=== PATIENT | male | born 1990 | race Caucasian/White ===

== ENCOUNTER 2020-11-28 13:11 | Emergency (ER) | payer OTHER, SELFPAY ==
[2020-11-28 13:37] VITALS: BP 141/88; PULSE 100; RESP 16; TEMP 36.7; O2SAT 100
[2020-11-28] MEDS: LIDO 1%/EPINEPHRINE 1:100,000 50 ML VIAL (14:00)
--- NOTE | 2020-11-28 14:22 | ED.MALEGU ---
HPI - Male Genitourinary General Chief complaint: Urogenital-Male Stated complaint: RIGHT TESTICULAR SWELLING Time Seen by Provider: 11/28/20 13:20 Source: patient Mode of arrival: ambulatory Limitations: no limitations History of Present Illness HPI Narrative: 30 years old white male presents with skin lesion/abscess of the scrotum for the last 7 days. Patient denies any fever, chills, nausea, vomiting, similar symptoms. Related Data Allergies Allergy/AdvReac Type Severity Reaction Status Date / Time No Known Allergies Allergy Unverified 11/28/20 13:44 Review of Systems Review of Systems: Narrative: CONSTITUTIONAL: Denies fever, chills, or sweats. EYES: Denies visual changes, redness, or discharge. ENT: Denies rhinorrhea, congestion, sore throat, or otalgia. CARDIOVASCULAR: Denies chest pain, palpitations, or edema. RESPIRATORY: Denies cough or dyspnea. GASTROINTESTINAL: Denies abdominal pain, nausea, vomiting, or diarrhea. GENITOURINARY: Denies dysuria or hematuria. SKIN: Denies rash or itching. MUSCULOSKELETAL: Denies back pain, joint pain, or myalgia. NEUROLOGIC: Denies headache, numbness, or weakness. PSYCHIATRIC: Denies anxiety or depression. Exam Narrative: Exam Narrative: General appearance: Well-developed, well-nourished Skin: Normal color Chest and respiratory: Airway patent, no respiratory distress, no accessory muscle use Heart: Regular rate/rhythm Abdomen: Soft, nontender, no organomegaly, quiet bowel sounds, genital exam showed 1.5 x 1.5 cm abscess-like lesion at the scrotum anteriorly, tender, no erythema, no discharge Vascular: Normal peripheral pulses, normal capillary refill. Musculoskeletal: Normal range of motion, nontender back Neurologic: Alert and oriented ?3, Course Course Emergency Course: Stable Vital Signs Vital signs: Vital Signs Temperature 36.7 C 11/28/20 13:37 Pulse Rate 100 11/28/20 13:37 Respiratory Rate 16 11/28/20 13:37 Blood Pressure 141/88 H 11/28/20 13:37 Pulse Oximetry 100 11/28/20 13:37 Temperature 36.7 C 11/28/20 13:37 Pulse Rate 100 11/28/20 13:37 Respiratory Rate 16 11/28/20 13:37 Blood Pressure 141/88 H 11/28/20 13:37 Pulse Oximetry 100 11/28/20 13:37 Procedures Abscess I/D scrotum: Date of Incision: 11/28/20 Time of Incision: 14:39 Side (if applicable): right Local Anesthetic: lidocaine 1% and with epi Amount of anesthesia used (mL): 3 Technique: incised with #11 blade and probed loculations Amount of fluid expressed (mL): 2 Irrigation: No Packing used?: iodoform I&D Results: Pus and Blood Abcess I&D Additional Comments: Patient tolerated the procedure well, cultures ordered. MDM - Male Genitourinary MDM Narrative Medical decision making narrative: Abscess of scrotum. Incision and drainage is recommended at this time. Further plan to follow Critical Care Time Critical Care Time Critical Care Time: No Discharge Plan Discharge Clinical Impression: Abscess of scrotum Patient Disposition: Home, Self-Care Condition: Improved Instructions: Abscess Incision and Drainage (DC) Additional Instructions: Return if symptoms are worsening , call your family physician for appointment, take Tylenol as as needed for aches and pain, continue home medications., Remove the packing in 24 hours Prescriptions: New clindamycin HCl 300 mg capsule 300 mg PO Q6H Qty: 28 RF: 0 Follow-up/Referrals: PHYSICIAN,CASINO RUNNER [Primary Care Provider] - Ayad Fuller MD [Physician] -
== END 2020-11-28 15:05 | disposition home or self-care (01) ==
PROVIDERS: Emergency Provider Emergency Medicine
DX: N49.2 Inflammatory disorders of scrotum (principal)
CPT/HCPCS: 55100; 87070; 87075; 87147; 87186; 87205; 99283

== ENCOUNTER 2021-03-20 21:58 | Emergency (ER) | payer OTHER, SELFPAY ==
--- NOTE | ~2021-03-20 | XR_ITS ---
EXAMINATION: XR chest 2V 03/21/2021 06:31 INDICATION: Leukocytosis PROCEDURE: 2 view chest COMPARISON: No prior studies for comparison. FINDINGS: The lungs are clear. The cardiomediastinal silhouette is within normal limits. There are no pleural effusions. There is no pneumothorax suspected. IMPRESSION: 1: NO ACUTE CARDIOPULMONARY DISEASE. Reviewed, dictated and finalized at location A.
[2021-03-20 22:41] VITALS: BP 102/65; PULSE 97; RESP 18; TEMP 36.4; O2SAT 99
--- NOTE | 2021-03-21 00:18 | PC.NURSE ---
pt states he was recently at [facility] in [place], [place] for same issue and signed out AMA 2 weeks ago. He states they diagnosed him w/ MRSA infection. he states 2 days ago he developed another wound on his chin.
[2021-03-21 00:21] VITALS: BP 128/82; PULSE 95; RESP 18; O2SAT 100
[2021-03-21 00:26] VITALS: BP 128/82
--- NOTE | 2021-03-21 01:36 | PC.NURSE ---
pt ambulated to restroom to give urine sample at this time.
--- NOTE | 2021-03-21 01:37 | PC.NURSE ---
this rn called down to lab to add on CMP CBC.
[2021-03-21 01:43] LABS: Basophils Absolute Auto 0.1 K/mm3 (0.0-0.1); Basophils Percent Auto 0.4 % (0.2-1.2); Eosinophils Absolute Auto 0.2 K/mm3 (0-0.3); Eosinophils Percent Auto 1.5 % (0-4.4); Hemoglobin 14.5 g/dL (14.0-18.0); Immature Granulocyte Absolute 0.08 K/mm3 (0.00-0.031); Immature Granulocyte Percent A 0.5 % (0-0.5); Lymphocytes Absolute Auto 2.94 K/mm3 (0.9-3.2); Lymphocytes Percent Auto 17.9 % (18.3-44.2); Mean Corpuscular Hemoglobin 29.4 pg (26-34); Mean Corpuscular Volume 89.2 fl (80-100); Mean Platelet Volume 11.3 fl (7.4-10.4); Monocytes Absolute Auto 1.3 K/mm3 (0.1-0.6); Monocytes Percent Auto 7.7 % (2.6-8.5); Neutrophils Absolute Auto 11.8 K/mm3 (1.3-6.7); Platelet Count Result 318 k/mm3 (150-375); Red Blood Count 4.93 M/mm3 (4.6-6.20); Red Cell Distribution Width 12.1 % (11.5-14.5); White Blood Count 16.4 K/mm3 (4.5-10.0)
[2021-03-21 01:46] LABS: Alanine Aminotransferase 29 U/L (4-50); Albumin Level 4.8 g/dL (3.5-5.1); Alkaline Phosphatase 78 U/L (38-126); Anion Gap 15 mmol/L (8-16); Aspartate Amino Transferase 39 U/L (17-59); Bilirubin,Total 1.3 mg/dL (0.2-1.3); Blood Urea Nitrogen 20 mg/dL (9-20); Carbon Dioxide 25 mmol/L (22-30); Chloride 94 mmol/L (98-107); Estimated CRCL calculation 88 ml/min; Estimated Glomerular Filt Rate > 60; Glucose 67 mg/dL (75-110); Potassium 3.6 mmol/L (3.4-5.0); Sodium 134 mmol/L (137-145)
[2021-03-21 01:52] LABS: Add Urine Microscopic? YES; Appearance Urine Cloudy (Clear); Bacteria Urine Trace /hpf; Bilirubin Urine Negative (Negative); Blood Urine Negative (Negative); Color Urine Amber (Yellow); Glucose Urine UA Negative (Negative); Ketones Urine 1+ mg/dL (Negative); Leukocyte Esterase Ur Negative LEU/UL (Negative); Mucus Urine Moderate /lpf; Nitrate Urine Negative (Negative); Protein Urine 1+ mg/dL (Negative); RBC Urine 0-2 /hpf (0-2); Specific Grav Ur 1.028 (1.001-1.035); Squamous Epithelial Cell Urine Rare /hpf (Few)
--- NOTE | 2021-03-21 02:10 | ED.SKABFB ---
HPI - Skin/Abscess/Foreign Bdy General Chief complaint: Skin/Abscess/Foreign Body Stated complaint: blood disease need IV antibiotics Time Seen by Provider: 03/21/21 01:46 Source: patient and RN notes reviewed Mode of arrival: ambulatory Limitations: no limitations History of Present Illness HPI narrative: This is a homeless 30 year old male who present for evaluation of an infection. He states 2 weeks ago he was admitted to [facility] to treat MRSA infection. He states he was taking clindamycin but he states he was admitted for IV Antibiotics because of lack of improvement. He is unsure if he was bacteremic. Patient states he left AMA 2 weeks ago. He came to ER today because he is tired of having sores on his face and back. He denies fever, chills, nausea, vomiting. He does admit to methamphetamine use but denies IV Drug use. Related Data Allergies Allergy/AdvReac Type Severity Reaction Status Date / Time No Known Allergies Allergy Unverified 03/21/21 00:26 Review of Systems Review of Systems: All systems reviewed & are unremarkable except as noted in HPI and below Constitutional: Constitutional: Denies chills and Denies fever(s) Cardiovascular: Cardiovascular: Denies chest pain Respiratory: Respiratory: Denies cough and Denies dyspnea Gastrointestinal: Gastrointestinal: Denies abdominal pain, Denies diarrhea, Denies nausea and Denies vomiting Integumentary/Breasts: Skin/Breast: Reports erythema and Reports skin ulcer PMFSH Past Medical History Medical History (Updated 03/21/21 @ 06:40 by Princess Resendez MD) MRSA infection Surgical History Surgical History (Updated 03/21/21 @ 06:37 by Princess Resendez MD) No pertinent past surgical history Social History Social History (Updated 03/21/21 @ 06:37 by Princess Resendez MD) Smoking status: Current every day smoker Substance use type: methamphetamine Gender identity (if verbalized by the patient): Male Exam Const: General: no acute distress and alert Orientation/consciousness: patient oriented x3 HENMT: Mouth: Yes lip normal Throat: uvula midline Other: right chin with gold crusting lesion, no drainage Eyes: Pupils: Equal, round and reactive pupils present EOM: EOMs intact bilaterally Chest: Chest palpation & inspection: normal inspection of the chest Resp: Effort & Inspection: normal respiratory effort and no retractions Auscultation: clear to auscultation bilaterally Cardio: Rate: regular rate Rhythm: regular rhythm GI: Auscultation: normal bowel sounds Other: soft, nontender, nondistended Skin: Wounds: wounds noted Other: 3 healing ulceration to his back, no surrounding erythema or drainage, right chin lesion macular with lewis crusting, no surrounding erythema or drainage Neuro: General: patient oriented x3 and moves all extremities Course Reevaluation(s) Reevaluation #1: PAtient was given dose of clindamyin IV. Patient does appear to have some skin lesions that may be mrsa or impetigo. His vitals are stable so will discharge with antibiotics. It is unclear if he is bacteremic but he does not look acutely ill. Date: 03/21/21 Time: 06:39 Vital Signs Vital signs: Vital Signs Temperature 97.5 F L 03/20/21 22:41 Pulse Rate 97 03/20/21 22:41 Respiratory Rate 18 03/20/21 22:41 Blood Pressure 102/65 03/20/21 22:41 Pulse Oximetry 99 03/20/21 22:41 Temperature 97.5 F L 03/20/21 22:41 Pulse Rate 69 03/21/21 05:56 Respiratory Rate 18 03/21/21 05:56 Blood Pressure 125/83 03/21/21 05:56 Pulse Oximetry 100 03/21/21 05:56 MDM - Skin/Abscess/Foreign Bdy Medical Records Attestation: I reviewed the patient's medical records. Lab Data Attestation: I reviewed the patient's lab results. Result diagrams: 03/21/21 00:23 03/21/21 00:23 Labs: Lab Results 03/21/21 03/21/21 03/21/21 Range/Units 00:23 00:23 01:39 WBC 16.4 H (4.5
[2021-03-21 03:27] VITALS: BP 129/84; PULSE 96; RESP 18; O2SAT 99
[2021-03-21] MEDS: CLINDAMYCIN 900 MG/D5W 50 ML 900 MG/50 ML PIGGYBACK 50 MG IVPB (03:41)
[2021-03-21 05:56] VITALS: BP 125/83; PULSE 69; RESP 18; O2SAT 100
[2021-03-21 07:19] VITALS: BP 119/75; PULSE 83; RESP 18; O2SAT 100
== END 2021-03-21 07:26 | disposition home or self-care (01) ==
PROVIDERS: Emergency Provider General Practice
DX: L03.211 Cellulitis of face (principal); L01.00 Impetigo, unspecified; Z59.0 Homelessness; Z86.14 Personal history of Methicillin resistant Staphylococcus aureus infection
CPT/HCPCS: 36415; 71046; 80053; 81001; 85025; 87040; 96365; 99284

== ENCOUNTER 2024-04-01 20:22 | Emergency (ER) | payer OTHER, SELFPAY ==
--- NOTE | 2024-04-01 20:37 | ECG_ITS ---
SEE SCANNED COPY FOR CONFIRMED REPORT. MTDD
[2024-04-01 20:38] VITALS: BP 122/79; PULSE 101; RESP 18; TEMP 36.8; O2SAT 100
[2024-04-01 20:49] LABS: Basophils Percent Auto 0.2 % (0.2-1.2); Eosinophils Absolute Auto 0.1 K/mm3 (0-0.3); Eosinophils Percent Auto 1.2 % (0-4.4); Hematocrit 36.5 % (42.0-52.0); Hemoglobin 12.6 g/dL (14.0-18.0); Immature Granulocyte Absolute 0.04 K/mm3 (0.00-0.031); Immature Granulocyte Percent A 0.3 % (0-0.5); Lymphocytes Absolute Auto 2.37 K/mm3 (0.9-3.2); Lymphocytes Percent Auto 19.7 % (18.3-44.2); Mean Corpuscular HGB Conc 34.5 g/dl (32-36); Mean Corpuscular Hemoglobin 29.8 pg (26-34); Mean Corpuscular Volume 86.3 fl (80-100); Mean Platelet Volume 10.2 fl (7.4-10.4); Monocytes Absolute Auto 1.1 K/mm3 (0.1-0.6); Monocytes Percent Auto 9.4 % (2.6-8.5); Neutrophils Absolute Auto 8.4 K/mm3 (1.3-6.7); Neutrophils Percent Auto 69.2 % (45.5-73.1); Platelet Count Result 266 k/mm3 (150-375); Red Blood Count 4.23 M/mm3 (4.6-6.20); Red Cell Distribution Width 12.4 % (11.5-14.5); White Blood Count 12.1 K/mm3 (4.5-10.0)
[2024-04-01 20:55] LABS: Appearance Urine Clear (Clear); Bacteria Urine None Seen /hpf; Bilirubin Urine Negative (Negative); Blood Urine Negative (Negative); Color Urine Dark Yellow (Yellow); Glucose Urine UA Negative (Negative); Ketones Urine 1+ mg/dL (Negative); Leukocyte Esterase Ur Negative LEU/UL (Negative); Nitrate Urine Negative (Negative); Non Pathogenic Casts 0-2; Protein Urine Trace mg/dL (Negative); RBC Urine 0-2 /hpf (0-2); Specific Grav Ur 1.029 (1.001-1.035); Squamous Epithelial Cell Urine None Seen /hpf (Few); WBC Urine 0-5 /hpf (0-3); pH Urine 5.5 (5.0-9.0)
[2024-04-01 21:02] LABS: Alanine Aminotransferase 31 U/L (6-50); Albumin Level 4.2 g/dL (3.5-5.1); Alkaline Phosphatase 76 U/L (38-126); Anion Gap 9 mmol/L (4-12); Aspartate Amino Transferase 30 U/L (17-59); Bilirubin,Total 0.7 mg/dL (0.2-1.3); Blood Urea Nitrogen 13 mg/dL (9-20); Carbon Dioxide 23 mmol/L (22-30); Chloride 100 mmol/L (98-107); Estimated CRCL calculation 115 ml/min; Estimated Glomerular Filt Rate > 60; Ethanol < 10 mg/dL (<10); Glucose 87 mg/dL (65-110); Potassium 3.8 mmol/L (3.4-5.0); Sodium 132 mmol/L (137-145)
[2024-04-01 21:09] LABS: Barbiturate Screen Urine Negative (Negative); Benzodiazepines Screen Urine Negative (Negative)
[2024-04-01 21:12] LABS: Amphetamine Screen Urine Positive (Negative); Cannabinoid Screen Urine Positive (Negative); Cocaine Screen Urine Negative (Negative); Methadone Screen Urine Negative (Negative); Opiate Screen Urine Negative (Negative); Phencyclidine Screen Urine Negative (Negative)
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
[2024-04-01 21:22] LABS: Add Urine Microscopic? YES
[2024-04-01 21:55] LABS: Influenza A QL RT-PCR Negative (Negative); Influenza B QL RT-PCR Negative (Negative); SARS-CoV-2 RNA PCR Negative (Negative)
[2024-04-01 22:13] LABS: Thyroid Stimulating Hormone Reflex 0.812 uIU/mL (0.465-4.68)
[2024-04-02] MEDS: OLANZapine 5 MG, WATER, STERILE FOR INJECTION 2.1 ML IM (00:17)
--- NOTE | 2024-04-02 00:22 | PC.NURSE ---
Upon crisis arrival, pt began to get irritate. pt refused to answer questions for crisis. this rn asked for patient to sit up and to answer questions so that crisis could evaluate him. Pt started to yell and states, I won't talk to them, only to a psychiatrist, leave me alone . this rn educated patient that in order to be evaluated he needed to calm down and let Crisis evaluate him. pt laid back down. Pt then jumped up and started to scream at this RN to leave him alone. this rn left the room. pt calmed down. pt then attempted to close the door. this rn called ed security. pt then started screaming and yelling I will summon the gods on you, this is not right I told you I needed help . this rn attempted to reorient patient to surroundings. edp dr. maria stated verbal order for zyprexa to calm patient down. this rn administered zyprexa IM in the left deltoid to patient. Patient stated, I will calm down as soon as you get me a sandwich. I am hungry and thirsty . This rn stated once patient was calm and cooperative, food and drink would be given. pt laid back down. this rn gave patient a sandwich , chips, and water. Pt then laid down and began to eat calmly.
[2024-04-02 07:47] VITALS: BP 100/63; PULSE 72; RESP 18; TEMP 36.6; O2SAT 99
--- NOTE | 2024-04-02 08:14 | PC.NURSE ---
per charge weigher, crisis will evaluate pt once pt is alert and awake. obtained vitals on pt. pt still sleeping. will call crisis again once pt is awake and able to answer questions.
--- NOTE | 2024-04-02 12:34 | PC.NURSE ---
pt has been accepted at [facility]. accepting physician is Dr. Cain.
--- NOTE | 2024-04-02 13:33 | PC.NURSE ---
unable to find ems transport for [facility]. pt has been accepted to [facility]. report called to Gladys GONZALES. Accepting physician is Dr. Aly. EMS here at this time for transport to [facility]. Called [facility] and Spoke with Leonarda to let her know pt will no longer be coming to [facility].
== END 2024-04-02 13:40 ==
PROVIDERS: Emergency Medicine; Emergency Provider Emergency Medicine
DX: R45.851 Suicidal ideations (principal); R45.850 Homicidal ideations; Z20.822 Contact with and (suspected) exposure to COVID-19; F17.210 Nicotine dependence, cigarettes, uncomplicated
CPT/HCPCS: 36415; 80053; 80307; 81001; 84443; 85025; 87636; 93005; 96372; 99285; J2359

== ENCOUNTER 2024-07-08 17:26 | Inpatient (IN) | payer OTHER, SELFPAY ==
[2024-07-08 17:30] VITALS: BP 132/84; PULSE 109; RESP 16; TEMP 36.8; O2SAT 98
[2024-07-08 18:11] LABS: Basophils Absolute Auto 0.1 K/mm3 (0.0-0.1); Basophils Percent Auto 0.4 % (0.2-1.2); Eosinophils Absolute Auto 0.2 K/mm3 (0-0.3); Eosinophils Percent Auto 0.7 % (0-4.4); Hematocrit 44.4 % (42.0-52.0); Hemoglobin 16.2 g/dL (14.0-18.0); Immature Granulocyte Percent A 0.5 % (0-0.5); Lymphocytes Absolute Auto 2.85 K/mm3 (0.9-3.2); Lymphocytes Percent Auto 13.8 % (18.3-44.2); Mean Corpuscular HGB Conc 36.5 g/dl (32-36); Mean Corpuscular Hemoglobin 30.9 pg (26-34); Mean Corpuscular Volume 84.6 fl (80-100); Mean Platelet Volume 10.6 fl (7.4-10.4); Monocytes Absolute Auto 2.4 K/mm3 (0.1-0.6); Monocytes Percent Auto 11.6 % (2.6-8.5); Platelet Count Result 271 k/mm3 (150-375); Red Blood Count 5.25 M/mm3 (4.6-6.20); Red Cell Distribution Width 12.1 % (11.5-14.5); White Blood Count 20.6 K/mm3 (4.5-10.0)
[2024-07-08 18:23] LABS: Acetaminophen < 10 ug/mL (10-30); Alanine Aminotransferase 66 U/L (6-50); Alkaline Phosphatase 85 U/L (38-126); Anion Gap 13 mmol/L (4-12); Aspartate Amino Transferase 213 U/L (17-59); Bilirubin,Total 1.7 mg/dL (0.2-1.3); Blood Urea Nitrogen 22 mg/dL (9-20); Calcium 9.3 mg/dL (8.4-10.2); Carbon Dioxide 30 mmol/L (22-30); Chloride 86 mmol/L (98-107); Estimated CRCL calculation 66 ml/min; Estimated Glomerular Filt Rate 59; Ethanol < 10 mg/dL (<10); Glucose 116 mg/dL (65-110); Potassium 3.5 mmol/L (3.4-5.0); Salicylate < 1.0 mg/dL (2-20); Sodium 129 mmol/L (137-145)
[2024-07-08 18:32] LABS: Amphetamine Screen Urine Negative (Negative); Barbiturate Screen Urine Negative (Negative); Benzodiazepines Screen Urine Negative (Negative); Cannabinoid Screen Urine Positive (Negative); Cocaine Screen Urine Negative (Negative); Methadone Screen Urine Negative (Negative); Opiate Screen Urine Negative (Negative); Phencyclidine Screen Urine Negative (Negative)
[2024-07-08 18:34] LABS: Add Urine Microscopic? YES; Appearance Urine Clear (Clear); Bacteria Urine None Seen /hpf; Bilirubin Urine Negative (Negative); Blood Urine 2+ (Negative); Color Urine Yellow (Yellow); Glucose Urine UA Negative (Negative); Ketones Urine Negative (Negative); Leukocyte Esterase Ur Negative LEU/UL (Negative); Need Manual Microscopic Reviewed; Nitrate Urine Negative (Negative); Protein Urine 1+ mg/dL (Negative); RBC Urine 0-2 /hpf (0-2); Squamous Epithelial Cell Urine None Seen /hpf (Few); WBC Urine 0-5 /hpf (0-3)
[2024-07-08 18:47] LABS: Influenza A QL RT-PCR Negative (Negative); Influenza B QL RT-PCR Negative (Negative); RSV RNA, RT-PCR Negative (Negative); SARS-CoV-2 RNA PCR Negative (Negative)
[2024-07-08 19:01] LABS: Thyroid Stimulating Hormone Reflex 0.447 uIU/mL (0.465-4.68)
--- NOTE | 2024-07-08 19:49 | ED.PSYCH ---
HPI - Psych General Chief Complaint: Psychiatric Symptoms <BELIA Zamora Last Filed: 07/09/24 02:07> Stated Complaint: psych <BELIA Zamora Last Filed: 07/09/24 02:07> Time Seen by Provider: 07/08/24 18:49 <BELIA Zamora Last Filed: 07/09/24 02:07> Source: patient <BELIA Zamora Last Filed: 07/09/24 02:07> Mode of arrival: ambulatory <BELIA Zamora Last Filed: 07/09/24 02:07> Limitations: other (acute psychosis) <BELIA Zamora Last Filed: 07/09/24 02:07> History of Present Illness HPI Narrative: This is a 33-year-old male that presents to the emergency department for psychiatric evaluation. Reports he has been having thoughts of harming himself. Reports history of multiple attempts in the past. He is also previous psychiatric hospitalizations. Patient with history of schizophrenia and bipolar disorder. Also admits to using drugs. He has no plan on how he would harm himself. Patient is homeless. <BELIA Zamora Last Filed: 07/09/24 02:07> Related Data Home Medications: Home Medications Medication Instructions Recorded Confirmed No Home Medications 07/09/24 07/09/24 <BELIA Zamora Last Filed: 07/09/24 02:07> Allergies/Adverse Reactions: Allergies Allergy/AdvReac Type Severity Reaction Status Date / Time No Known Allergies Allergy Unverified 07/08/24 17:26 <BELIA Zamora Last Filed: 07/09/24 02:07> Review of Systems Review of Systems: CONSTITUTIONAL: Denies fever GASTROINTESTINAL: Denies abdominal pain, nausea, vomiting PSYCHIATRIC: Reports depression. <BELIA Zamora Last Filed: 07/09/24 02:07> All systems reviewed & are unremarkable except as noted in HPI and below <BELIA Zamora Last Filed: 07/09/24 02:07> [facility] Past Medical History Medical History: Medical History (Updated 07/08/24 @ 21:32 by Ruth Vega PA-C) History of bipolar disorder MRSA infection <Ruth Vega PA-C - Last Filed: 07/09/24 02:07> Surgical History Surgical History: Surgical History No pertinent past surgical history <Ruth Vega PA-C - Last Filed: 07/09/24 02:07> Social History Social History: Social History Smoking packs per day: 0.5 Smoking cigarettes per day: 10.0 Years smoked: 15 Smoking pack-years: 7.50 Smoking status: Current every day smoker Tobacco type: cigarettes Substance use type: marijuana, crack/cocaine, heroin, amphetamines, sedatives, opiates, painkillers, IV drugs and methamphetamine Last use: about a week ago Do You Feel Safe in your Home?: Yes Lack of Transportation: YES Lack of Food: Sometimes True Current Housing: I Do Not Have Housing Concerned About Future Housing: YES Difficulty Paying Gas/Electric Bills: Decline to Answer Difficulty Paying for Meds: Decline to Answer Currently Unemployed: YES Education: Decline to Answer Difficulty w/ Childcare or Family Care: Decline to Answer Gender identity (if verbalized by the patient): Male Spiritual care concerns: No <Ruth Vega PA-C - Last Filed: 07/09/24 02:07> Exam Narrative: GENERAL: Disheveled, well-nourished, and in no acute distress. HEAD: Normocephalic, atraumatic. EYES: EOMI. ENT: Nares clear, no rhinorrhea or epistaxis. Mucous membranes dry NECK: Supple. No adenopathy or masses. CHEST: Clear to auscultation. No respiratory distress. No wheezes rales or rhonchi HEART: Regular rate and rhythm. No murmur heard. Normal peripheral pulses. ABDOMEN: Soft, nontender, nondistended, normal active bowel sounds. EXTREMITIES: Normal range of motion. No edema. SKIN: Warm, dry, no rash. NEURO: No focal deficits. Alert and oriented x3. PSYCH: Normal mood and affect <Ruth Vega PA-C -
[2024-07-08] MEDS: SODIUM CHLORIDE 0.9% IV 1,000 ML 999 ML IV CONT ×2 (20:08→22:55)
[2024-07-08 20:53] LABS: Creatine Kinase 11903 U/L (55-170)
--- NOTE | 2024-07-08 21:08 | PM.IMHP ---
H&P: HPI History of Present Illness Date/Time: 07/08/24 21:08 Chief Complaint: SUICIDAL IDEATION Narrative: THIS IS A 33-YEAR-OLD MALE WITH PAST MEDICAL HISTORY SIGNIFICANT FOR BIPOLAR DISORDER, MAJOR DEPRESSION. PATIENT IS HOMELESS. PRESENTS TO THE EMERGENCY ROOM STATING THAT HAS SUICIDAL IDEATION. PRELIMINARY WORKUP WAS SIGNIFICANT FOR A CK OF 11,000. PATIENT HAS BEEN STARTED ON IV FLUIDS. Review of Systems Review of Systems: SUICIDAL ADA PMFSH Past Medical History Medical History (Updated 07/08/24 @ 21:32 by Ruth Vega PA-C) History of bipolar disorder MRSA infection Surgical History Surgical History No pertinent past surgical history Social History Social History Smoking status: Current every day smoker Substance use type: amphetamines Gender identity (if verbalized by the patient): Male Meds Home Medications and Allergies Allergies Allergy/AdvReac Type Severity Reaction Status Date / Time No Known Allergies Allergy Unverified 07/08/24 17:26 Vital Signs Vital Signs - 24 hr 07/08/24 17:30 Temperature 98.2 F Pulse Rate 109 H Respiratory Rate 16 Blood Pressure 132/84 Pulse Oximetry 98 Exam Narrative: LAYING IN A STRETCHER Const: General: comfortable, no acute distress, well developed, alert, awake and average body habitus Nutritional Appearance: average body habitus Orientation/consciousness: patient oriented x3 HENMT: Head: normal to inspection, normocephalic and atraumatic Ears: hearing grossly normal bilaterally Face/Nose/Sinus: normal facial exam Face and sinus: normal facial exam Eyes: General: appearance normal, both eyes and all related structures Pupils: Equal, round and reactive pupils present EOM: EOMs intact bilaterally Neck: Neck: full ROM, no lymphadenopathy and no JVD Thyroid: thyroid normal Lymphatic: no lymphadenopathy noted Resp: Effort & Inspection: normal respiratory effort and able to speak in complete sentences Auscultation: clear to auscultation bilaterally Cardio: Jugular venous distension: no JVD Rate: regular rate Rhythm: regular rhythm Heart sounds: S1 normal heart sound present and S2 normal heart sound present GI: GI Palp: Yes Soft to palpation and Yes No hepatosplenomegaly present : General: Yes deferred Skin: Rashes: no rashes Wounds: no wounds Neuro: General: patient oriented x3 and CN's II-XI intact bilaterally Cranial nerves: Yes CN's II-XII intact bilaterally and Yes Equal, round and reactive pupils present Cognition (Neuro): normal cognition Speech: normal speech Gait exam (Neuro): Normal gait present Motor exam (neuro): 5/5 motor strength present throughout Extrem: General: normal to inspection, full ROM, no joint enlargement and no pedal edema H&P: Results Labs Labs: Short CBC 07/08/24 Range/Units 18:03 WBC 20.6 H (4.5-10.0) K/mm3 Hgb 16.2 D (14.0-18.0) g/dL Hct 44.4 (42.0-52.0) % Plt Count 271 (150-375) k/mm3 BMP 07/08/24 18:03 Sodium 129 L Potassium 3.5 Chloride 86 L Carbon Dioxide 30 BUN 22 H Creatinine 1.40 H Glucose 116 H Calcium 9.3 Cardiac Enzymes 07/08/24 Range/Units 18:02 Total Creatine Kinase 07515 H (55-170) U/L Liver Function 07/08/24 Range/Units 18:03 Total Bilirubin 1.7 H (0.2-1.3) mg/dL AST 213 H (17-59) U/L ALT 66 H (6-50) U/L Alkaline Phosphatase 85 (38-126) U/L Albumin 5.0 (3.5-5.1) g/dL Urine 07/08/24 Range/Units 18:03 Urine Color Yellow (Yellow) Urine Appearance Clear (Clear) Urine pH 6.0 (5.0-9.0) Ur Specific [place] 1.020 (1.001-1.035) Urine Protein 1+ H (Negative) mg/dL Urine Glucose (UA) Negative (Negative) mg/dL Assessment and Plan Assessment and plan (1) Rhabdomyolysis: Qualifiers: Rhabdomyolysis type: non-traumatic
[2024-07-08 22:05] VITALS: BP 127/76; PULSE 94; RESP 18; O2SAT 99
--- NOTE | 2024-07-08 22:10 | PC.NURSE ---
provider would like a sitter bedside to initiate SI precautions for patient safety. prior to Grulla scale reassessment patient was resting in bed with equal chest rise and fall. patient was cooperative when assessing them again
[2024-07-08] MEDS: SODIUM CHLORIDE 0.9% IV 1,000 ML 125 ML IV CONT (22:55)
--- NOTE | 2024-07-08 23:46 | PC.NURSE ---
care and report given to CHRISTIAN Obando. all questions answered.
[2024-07-08] MEDS: LORazepam INJ (*CRX) 2 MG/ML VIAL 0.5 MG IV PUSH (23:55)
[2024-07-09] VITALS (10 sets, daily range): BP systolic 110–140; BP diastolic 69–91; PULSE 76–97; RESP 14–20; TEMP 36.1–36.6; O2SAT 99–100; BMI 24.1
[2024-07-09] MEDS: ACETAMINOPHEN 325 MG TABLET 650 MG PO (06:07)
--- NOTE | 2024-07-09 06:20 | ADMGEN ---
This patient, Lars Jack, was admitted to Intensive Care Unit-4. IMU overflow. Patient/family oriented to hospital policies and general routines including ID bracelet, bed and alarms, visiting hours, pain management, procedures, bathroom and other care routines, personal items, smoking policy, room service/diet, and visiting hours. Information on how to activate the Rapid Response Team has been discussed. Patient/Family are encouraged to report perceived risks to care and to ask questions if they do not understand what they are told or what they should do.
[2024-07-09] MEDS: SODIUM CHLORIDE 0.9% IV 1,000 ML 125 ML IV CONT ×3 (06:40→23:29)
--- NOTE | 2024-07-09 06:46 | PC.NURSE ---
Patient states he likes to eat Creatine; patient states that he takes all of them when asked about recreational drug use; Patient denies taking any home medications.
[2024-07-09 13:13] LABS: Hematocrit 37.7 % (42.0-52.0); Hemoglobin 13.2 g/dL (14.0-18.0); Mean Corpuscular Hemoglobin 31.1 pg (26-34); Mean Corpuscular Volume 88.7 fl (80-100); Mean Platelet Volume 10.4 fl (7.4-10.4); Platelet Count Result 228 k/mm3 (150-375); Red Blood Count 4.25 M/mm3 (4.6-6.20); Red Cell Distribution Width 12.2 % (11.5-14.5); White Blood Count 11.3 K/mm3 (4.5-10.0)
[2024-07-09 13:53] LABS: Alanine Aminotransferase 52 U/L (6-50); Albumin Level 3.3 g/dL (3.5-5.1); Alkaline Phosphatase 62 U/L (38-126); Anion Gap 5 mmol/L (4-12); Aspartate Amino Transferase 159 U/L (17-59); Bilirubin,Total 0.7 mg/dL (0.2-1.3); Blood Urea Nitrogen 10 mg/dL (9-20); Calcium 8.1 mg/dL (8.4-10.2); Carbon Dioxide 32 mmol/L (22-30); Chloride 97 mmol/L (98-107); Estimated CRCL calculation 88 ml/min; Estimated Glomerular Filt Rate > 60; Glucose 95 mg/dL (65-110); Magnesium 2.1 mg/dL (1.6-2.3); Sodium 134 mmol/L (137-145)
[2024-07-09 14:03] LABS: Creatine Kinase 9333 U/L (55-170)
[2024-07-09] MEDS: CYCLOBENZAPRINE HCL 5 MG TABLET PO (15:56)
--- NOTE | 2024-07-09 17:57 | WPDPN ---
Progress Note: A&P Assessment and Plan (1) Rhabdomyolysis: Qualifiers: Rhabdomyolysis type: non-traumatic Qualified Code(s): M62.82 - Rhabdomyolysis Code(s): M62.82 - Rhabdomyolysis Status: Acute (2) Suicide ideation: Code(s): R45.851 - Suicidal ideations Status: Acute Plan patient UDS was positive for cannabinoids, patient is found to have rhabdomyolysis upon arrival patient CK level was 11,903 is trending down to 9333, upon arrival patient BUN was 22 creatinine 1 point it has trended down BUN is 5 and creatinine is 1, will continue to hydrate the patient and monitor CK level as well as kidney 5 patient clinical symptoms improved will continue to monitor CK levels are below 500 will stop IV fluid, will switch over to p.o. and have a crisis team evaluation possible transfer to inpatient psychiatric [facility]. Subjective Date/time seen: 07/09/24 17:57 Interval history: ER-HPI Narrative: This is a 33-year-old male that presents to the emergency department for psychiatric evaluation. Reports he has been having thoughts of harming himself. Reports history of multiple attempts in the past. He is also previous psychiatric hospitalizations. Patient with history of schizophrenia and bipolar disorder. Also admits to using drugs. He has no plan on how he would harm himself. Patient is homeless. patient UDS was positive for cannabinoids, patient is found to have rhabdomyolysis upon arrival patient CK level was 11,903 is trending down to 9333, upon arrival patient BUN was 22 creatinine 1 point it has trended down BUN is 5 and creatinine is 1, will continue to hydrate the patient and monitor CK level as well as kidney 5 patient clinical symptoms improved will continue to monitor CK levels are below 500 will stop IV fluid, will switch over to p.o. and have a crisis team evaluation possible transfer to inpatient psychiatric [facility]. Review of Systems Review of Systems: SUICIDAL ADA Exam Narrative: Patient is comfortable, NAD HEENT: eyes are clear and none icteric LUNGS:CTA HEART: RR S1S2 ABD: BS+, Soft and nontender Lower extremities: no edema SKIN: nonjaundiced Neuro: grossly intact. Objective Data Vital Signs Vital Signs: Vital Signs - 24 hr 07/08/24 22:05 07/09/24 06:08 07/09/24 08:00 Temperature Pulse Rate 94 81 76 Respiratory Rate 18 14 Blood Pressure 127/76 140/91 H Pulse Oximetry 99 100 Oxygen Delivery 07/09/24 08:00 07/09/24 08:00 07/09/24 10:00 Temperature 36.6 C Pulse Rate 76 76 84 Respiratory Rate 14 15 Blood Pressure 119/76 Pulse Oximetry 100 100 Oxygen Delivery Room Air 07/09/24 12:00 07/09/24 12:00 07/09/24 12:00 Temperature 36.1 C L Pulse Rate 80 80 Respiratory Rate 15 Blood Pressure 110/75 Pulse Oximetry 100 100 Oxygen Delivery Room Air 07/09/24 14:00 07/09/24 15:59 07/09/24 16:00 Temperature 36.6 C Pulse Rate 91 79 91 Respiratory Rate 17 Blood Pressure 114/69 Pulse Oximetry 99 Oxygen Delivery Intake/Output Intake/Output: Intake & Output 07/06/24 07/07/24 07/08/24 07/09/24 23:59 23:59 23:59 23:59 Intake Total 1000 3890 Output Total 1400 Balance 1000 2490 Meds/Results Medications: Active Medications Generic Name Dose Route Start Last Admin Trade Name Freq PRN Reason Stop Dose Admin Cyclobenzaprine HCl 5 mg 07/09/24 15:21 07/09/24 15:56 Cyclobenzaprine Hcl 5 Mg Tablet PO 5 mg Q8H PRN Administration Muscle Spasm Sodium Chloride 1,000 mls @ 125 mls/hr 07/08/24 21:20 07/09/24 15:02 Normal Saline Iv IV CONT 125 mls/hr .Q8H DANIEL Administration Labs Labs: Laboratory Results - last 24 hr 07/08/24 07/08/24 07/09/24 18:02 18:03 13:05 WBC 20.6 H 11.3 H RBC 5.25 4.25 L Hgb 16.2 D 13.2 L D Hct 44.4 37.7 L MCV 84.6 88.7 MCH 30.9 31.1 MCHC 36.5 H 35.0 RDW 12.1 12.2 Plt Count 271 228 MPV 10
[2024-07-09] MEDS: traMADol HCL (*CRX) 50 MG TABLET PO (23:33)
[2024-07-10] VITALS (7 sets, daily range): BP systolic 114–121; BP diastolic 74–85; PULSE 64–80; RESP 12–15; TEMP 36.5–37.1; O2SAT 98
[2024-07-10] MEDS: CYCLOBENZAPRINE HCL 5 MG TABLET PO (04:39)
[2024-07-10 04:50] LABS: Basophils Absolute Auto 0.1 K/mm3 (0.0-0.1); Basophils Percent Auto 0.7 % (0.2-1.2); Eosinophils Absolute Auto 0.4 K/mm3 (0-0.3); Hematocrit 35.8 % (42.0-52.0); Immature Granulocyte Absolute 0.04 K/mm3 (0.00-0.031); Immature Granulocyte Percent A 0.4 % (0-0.5); Lymphocytes Absolute Auto 3.79 K/mm3 (0.9-3.2); Lymphocytes Percent Auto 38.3 % (18.3-44.2); Mean Corpuscular HGB Conc 33.5 g/dl (32-36); Mean Corpuscular Hemoglobin 30.3 pg (26-34); Mean Corpuscular Volume 90.4 fl (80-100); Mean Platelet Volume 10.6 fl (7.4-10.4); Monocytes Absolute Auto 1.1 K/mm3 (0.1-0.6); Monocytes Percent Auto 10.7 % (2.6-8.5); Neutrophils Absolute Auto 4.5 K/mm3 (1.3-6.7); Neutrophils Percent Auto 45.9 % (45.5-73.1); Platelet Count Result 252 k/mm3 (150-375); Red Blood Count 3.96 M/mm3 (4.6-6.20); Red Cell Distribution Width 12.4 % (11.5-14.5); White Blood Count 9.9 K/mm3 (4.5-10.0)
[2024-07-10 05:14] LABS: Alanine Aminotransferase 61 U/L (6-50); Albumin Level 3.1 g/dL (3.5-5.1); Alkaline Phosphatase 59 U/L (38-126); Anion Gap 2 mmol/L (4-12); Aspartate Amino Transferase 170 U/L (17-59); Bilirubin,Total 0.2 mg/dL (0.2-1.3); Blood Urea Nitrogen 7 mg/dL (9-20); Calcium 7.9 mg/dL (8.4-10.2); Carbon Dioxide 34 mmol/L (22-30); Chloride 101 mmol/L (98-107); Estimated CRCL calculation 108 ml/min; Estimated Glomerular Filt Rate > 60; Glucose 90 mg/dL (65-110); Magnesium 1.9 mg/dL (1.6-2.3); Potassium 3.9 mmol/L (3.4-5.0); Sodium 137 mmol/L (137-145)
[2024-07-10 05:39] LABS: Creatine Kinase 8830 U/L (55-170)
[2024-07-10] MEDS: SODIUM CHLORIDE 0.9% IV 1,000 ML 125 ML IV CONT ×2 (08:16→21:27)
--- NOTE | 2024-07-10 12:31 | WPDPN ---
Progress Note: A&P Assessment and Plan (1) Rhabdomyolysis: Qualifiers: Rhabdomyolysis type: non-traumatic Qualified Code(s): M62.82 - Rhabdomyolysis Code(s): M62.82 - Rhabdomyolysis Status: Acute (2) Suicide ideation: Code(s): R45.851 - Suicidal ideations Status: Acute Plan ER-HPI Narrative: This is a 33-year-old male that presents to the emergency department for psychiatric evaluation. Reports he has been having thoughts of harming himself. Reports history of multiple attempts in the past. He is also previous psychiatric hospitalizations. Patient with history of schizophrenia and bipolar disorder. Also admits to using drugs. He has no plan on how he would harm himself. Patient is homeless. patient UDS was positive for cannabinoids, patient is found to have rhabdomyolysis upon arrival patient CK level was 11,903 is trending down to 8830, upon arrival patient BUN was 22 creatinine 1 it has trended down BUN is 5 and creatinine is 1, will continue to hydrate the patient and monitor CK level as well as kidney function, once patient clinical symptoms improve and monitor CK levels are below 500 will stop IV fluid, will switch over to p.o. and have a crisis team evaluation possible transfer to inpatient psychiatric [facility]. Subjective Date/time seen: 07/10/24 12:31 Interval history: ER-HPI Narrative: This is a 33-year-old male that presents to the emergency department for psychiatric evaluation. Reports he has been having thoughts of harming himself. Reports history of multiple attempts in the past. He is also previous psychiatric hospitalizations. Patient with history of schizophrenia and bipolar disorder. Also admits to using drugs. He has no plan on how he would harm himself. Patient is homeless. patient UDS was positive for cannabinoids, patient is found to have rhabdomyolysis upon arrival patient CK level was 11,903 is trending down to 8830, upon arrival patient BUN was 22 creatinine 1 it has trended down BUN is 5 and creatinine is 1, will continue to hydrate the patient and monitor CK level as well as kidney function, once patient clinical symptoms improve and monitor CK levels are below 500 will stop IV fluid, will switch over to p.o. and have a crisis team evaluation possible transfer to inpatient psychiatric [facility]. Review of Systems Review of Systems: SUICIDAL ADA Exam Narrative: Patient is comfortable, NAD HEENT: eyes are clear and none icteric LUNGS:CTA HEART: RR S1S2 ABD: BS+, Soft and nontender Lower extremities: no edema SKIN: nonjaundiced Neuro: grossly intact. Objective Data Vital Signs Vital Signs: Vital Signs - 24 hr 07/09/24 14:00 07/09/24 15:59 07/09/24 16:00 Temperature 36.6 C Pulse Rate 91 79 91 Respiratory Rate 17 Blood Pressure 114/69 Pulse Oximetry 99 Oxygen Delivery 07/09/24 18:00 07/09/24 20:00 07/09/24 20:00 Temperature 36.5 C Pulse Rate 90 78 97 Respiratory Rate 20 Blood Pressure 124/84 Pulse Oximetry Oxygen Delivery 07/09/24 22:00 07/10/24 00:00 07/10/24 00:00 Temperature 37.1 C Pulse Rate 83 80 80 Respiratory Rate 15 Blood Pressure Pulse Oximetry Oxygen Delivery 07/10/24 02:00 07/10/24 04:00 07/10/24 04:00 Temperature 36.5 C Pulse Rate 70 77 77 Respiratory Rate 15 Blood Pressure 121/85 Pulse Oximetry 98 Oxygen Delivery 07/10/24 06:00 07/10/24 08:17 07/10/24 08:00 Temperature 36.5 C Pulse Rate 74 64 Respiratory Rate 12 Blood Pressure 121/78 Pulse Oximetry 98 Oxygen Delivery Room Air 07/10/24 08:00 Temperature Pulse Rate 68 Respiratory Rate Blood Pressure Pulse Oximetry Oxygen Delivery Intake/Output Intake/Output: Intake & Output 07/07/24 07/08/24 07/09/24 07/10/24 23:59 23:59 23:59 23:59 Intake Total 1000 5130 2711.3 Output Total 6995 1375 Balance 1000 2605 1336.3 Meds/Results
[2024-07-10 13:43] LABS: Hematocrit 34.1 % (42.0-52.0); Hemoglobin 11.8 g/dL (14.0-18.0); Mean Corpuscular HGB Conc 34.6 g/dl (32-36); Mean Corpuscular Hemoglobin 31.4 pg (26-34); Mean Corpuscular Volume 90.7 fl (80-100); Mean Platelet Volume 10.8 fl (7.4-10.4); Platelet Count Result 262 k/mm3 (150-375); Red Blood Count 3.76 M/mm3 (4.6-6.20); Red Cell Distribution Width 12.5 % (11.5-14.5); White Blood Count 8.7 K/mm3 (4.5-10.0)
[2024-07-10] MEDS: traMADol HCL (*CRX) 50 MG TABLET PO (21:34)
[2024-07-11] VITALS: BP 128/81; PULSE 69; RESP 16; TEMP 36.7; O2SAT 99
[2024-07-11 03:50] LABS: Hematocrit 33.5 % (42.0-52.0); Hemoglobin 11.4 g/dL (14.0-18.0); Mean Corpuscular Hemoglobin 30.6 pg (26-34); Mean Corpuscular Volume 90.1 fl (80-100); Mean Platelet Volume 10.4 fl (7.4-10.4); Platelet Count Result 256 k/mm3 (150-375); Red Blood Count 3.72 M/mm3 (4.6-6.20); Red Cell Distribution Width 12.4 % (11.5-14.5); White Blood Count 7.9 K/mm3 (4.5-10.0)
[2024-07-11 04:11] LABS: Alanine Aminotransferase 65 U/L (6-50); Albumin Level 2.9 g/dL (3.5-5.1); Alkaline Phosphatase 57 U/L (38-126); Anion Gap 3 mmol/L (4-12); Aspartate Amino Transferase 166 U/L (17-59); Bilirubin,Total 0.2 mg/dL (0.2-1.3); Blood Urea Nitrogen 9 mg/dL (9-20); Calcium 8.3 mg/dL (8.4-10.2); Carbon Dioxide 30 mmol/L (22-30); Chloride 103 mmol/L (98-107); Estimated CRCL calculation 122 ml/min; Estimated Glomerular Filt Rate > 60; Glucose 87 mg/dL (65-110); Magnesium 1.8 mg/dL (1.6-2.3); Potassium 3.9 mmol/L (3.4-5.0); Sodium 136 mmol/L (137-145)
[2024-07-11 05:15] LABS: Creatine Kinase 7631 U/L (55-170)
[2024-07-11] MEDS: SODIUM CHLORIDE 0.9% IV 1,000 ML 125 ML IV CONT ×2 (05:30→13:30)
[2024-07-11 08:00] VITALS: BP 136/91; PULSE 73; RESP 16; TEMP 36.9; O2SAT 96
[2024-07-11 16:00] VITALS: BP 143/79; PULSE 85; RESP 18; TEMP 36.8; O2SAT 95
[2024-07-11] MEDS: traMADol HCL (*CRX) 50 MG TABLET PO (17:01)
[2024-07-11] MEDS: NICOTINE (*PBKC) 21 MG PATCH 1 PATCH TRANSDERM (17:02)
--- NOTE | 2024-07-11 17:33 | PM.IMPN ---
Progress Note: A&P Assessment and Plan (1) Suicide ideation: Code(s): R45.851 - Suicidal ideations Status: Acute Assessment and Plan: Patient presents with complaints of suicidal ideation. He was on Klonopin but did not keep followup appointments. Still feel suicidal but no plan Crisis evaluation before discharge (2) Rhabdomyolysis: Qualifiers: Rhabdomyolysis type: non-traumatic Qualified Code(s): M62.82 - Rhabdomyolysis Code(s): M62.82 - Rhabdomyolysis Status: Acute Assessment and Plan: [place] [address]. Suspect related to walking UA showing 2+ blood but no RBC. He was started on IV fluids. TCK trending down slowly. Cr elevated on admission but normal now with good UOP. Will advance IV fluid rate and give Lasix once. (3) Elevated LFTs: Code(s): R79.89 - Other specified abnormal findings of blood chemistry Status: Acute Assessment and Plan: AST was at 213 and is now trending down. ALT up again today. Related to above Check hepatitis screen givne his risk factors. (4) KASSY (acute kidney injury): Code(s): N17.9 - Acute kidney failure, unspecified Status: Acute Assessment and Plan: Cr 1.4 on admission related to rhabdo and dehydration Cr normal now Follow (5) Abrasion of foot: Code(s): S90.819A - Abrasion, unspecified foot, initial encounter Status: Acute Assessment and Plan: Noted and dry. Will leave open to air. speech scientist following and apprecaite their input. (6) Homeless: Code(s): Z59.00 - Homelessness unspecified Status: Acute Assessment and Plan: Care coordination to provide information about services in our area (7) Drug abuse: Code(s): F19.10 - Other psychoactive substance abuse, uncomplicated Status: Acute Assessment and Plan: Patient educated about the benefits of abstaining from drug use. Check hepatitis panel and HIV Plan Code status - full DVT prophylaxis - lovenox Subjective Date/time seen: 07/11/24 17:33 Interval history: 33-year-old male with schizophrenia who presents to the emergency department for psychiatric evaluation and suicidal thoughts. Assuming care. Chart reviewed. He feels unwell but no specific complaints. Eating okay. Voiding well. He has sores on his feet from walking so much. He still has SI but denies plan. Exam Narrative: AF 98.3 143/79 85 18 95% ra Gen - NARD Chest - CTA bilaterally, nml RR CV - RRR S1/S2 Abd - Soft, NT/ND, Positive BS Ext - No pedal edema Neuro - Alert and appropriate. nonfocal Psych - Nml mood and affect. good eye contact Skin - Warm and dry. dried shallow abrasions (probably dried bullae) with one bullae noted right medial heel. scant surrounding erythema to the left heel noted. Objective Data Vital Signs Vital Signs: Vital Signs - 24 hr 07/11/24 00:00 07/11/24 08:00 07/11/24 08:00 Temperature 98.1 F 98.4 F Pulse Rate 69 73 Respiratory Rate 16 16 Blood Pressure 128/81 136/91 H Pulse Oximetry 99 96 Oxygen Delivery Room Air 07/11/24 16:00 Temperature 98.3 F Pulse Rate 85 Respiratory Rate 18 Blood Pressure 143/79 H Pulse Oximetry 95 Oxygen Delivery Intake/Output Intake/Output: Intake & Output 07/08/24 07/09/24 07/10/24 07/11/24 23:59 23:59 23:59 23:59 Intake Total 1000 5130 4400.0 3760 Output Total 2525 2925 5450 Balance 1000 2605 1475.0 -1690 Meds/Results Medications: Active Medications Generic Name Dose Route Start Last Admin Trade Name Freq PRN Reason Stop Dose Admin Sodium Chloride 1,000 mls @ 125 mls/hr 07/08/24 21:20 07/11/24 13:30 Normal Saline Iv IV CONT 125 mls/hr .Q8H DANIEL Administration Nicotine 1 patch 07/11/24 16:55 07/11/24 17:02 Nicotine (*Pbkc) 21 Mg Patch TRANSDERM 1 patch DAILY DANIEL Administration Tramadol HCl 50 mg 07/09/24 21:52 07/11
[2024-07-11] MEDS: ENOXAPARIN 40 MG/0.4 ML SYRINGE SUB-Q (18:10)
[2024-07-11] MEDS: FUROSEMIDE INJ 40 MG/4 ML VIAL 20 MG IV PUSH (18:10)
[2024-07-11] MEDS: SODIUM CHLORIDE 0.9% IV 1,000 ML 200 ML IV CONT (20:18)
[2024-07-12] VITALS: BP 128/82; PULSE 80; RESP 18; TEMP 36.8; O2SAT 97
[2024-07-12] MEDS: SODIUM CHLORIDE 0.9% IV 1,000 ML 200 ML IV CONT ×5 (01:07→22:09)
[2024-07-12 04:39] LABS: Hematocrit 37.8 % (42.0-52.0); Hemoglobin 13.1 g/dL (14.0-18.0); Mean Corpuscular HGB Conc 34.7 g/dl (32-36); Mean Corpuscular Hemoglobin 30.1 pg (26-34); Mean Corpuscular Volume 86.9 fl (80-100); Mean Platelet Volume 10.6 fl (7.4-10.4); Platelet Count Result 288 k/mm3 (150-375); Red Blood Count 4.35 M/mm3 (4.6-6.20); Red Cell Distribution Width 11.9 % (11.5-14.5); White Blood Count 8.4 K/mm3 (4.5-10.0)
[2024-07-12 04:55] LABS: Alanine Aminotransferase 70 U/L (6-50); Albumin Level 3.3 g/dL (3.5-5.1); Alkaline Phosphatase 70 U/L (38-126); Anion Gap 3 mmol/L (4-12); Aspartate Amino Transferase 137 U/L (17-59); Bilirubin,Total 0.3 mg/dL (0.2-1.3); Blood Urea Nitrogen 8 mg/dL (9-20); Calcium 8.4 mg/dL (8.4-10.2); Carbon Dioxide 33 mmol/L (22-30); Chloride 101 mmol/L (98-107); Estimated CRCL calculation 122 ml/min; Estimated Glomerular Filt Rate > 60; Glucose 92 mg/dL (65-110); Magnesium 1.7 mg/dL (1.6-2.3); Potassium 3.2 mmol/L (3.4-5.0); Sodium 137 mmol/L (137-145)
[2024-07-12 05:17] LABS: Creatine Kinase 4855 U/L (55-170)
[2024-07-12 05:30] LABS: HIV 1/2 Ab P24 Ag Result Negative (Negative)
[2024-07-12 05:42] LABS: Hepatitis B Surface Antigen Negative (Negative)
[2024-07-12 05:48] LABS: HAV RESULT Negative (Negative); Hepatitis B Core IgM Result Negative (Negative)
[2024-07-12 05:59] LABS: Hepatitis C Virus Antibody Negative (Negative)
[2024-07-12] MEDS: traMADol HCL (*CRX) 50 MG TABLET PO ×2 (06:13→17:02)
[2024-07-12 08:00] VITALS: BP 140/90; PULSE 74; RESP 14; TEMP 36.8; O2SAT 100
[2024-07-12] MEDS: FUROSEMIDE INJ 40 MG/4 ML VIAL 20 MG IV PUSH ×2 (09:07→18:37)
[2024-07-12] MEDS: POTASSIUM CHLORIDE 20 MEQ ER TABLET 40 MEQ PO (09:07)
[2024-07-12] MEDS: NICOTINE (*PBKC) 21 MG PATCH 1 PATCH TRANSDERM (09:08)
[2024-07-12] MEDS: ENOXAPARIN 40 MG/0.4 ML SYRINGE SUB-Q (09:08)
[2024-07-12] MEDS: POTASSIUM CHLORIDE 20 MEQ ER TABLET PO (09:08)
[2024-07-12 16:00] VITALS: BP 154/94; PULSE 70; RESP 18; TEMP 36.9; O2SAT 100
--- NOTE | 2024-07-12 16:38 | PM.IMPN ---
Progress Note: A&P Assessment and Plan (1) Suicide ideation: Code(s): R45.851 - Suicidal ideations Status: Acute Assessment and Plan: Patient presents with complaints of suicidal ideation. He was on Klonopin but did not keep followup appointments. he no longer feels suicidal and has never had a plan Crisis evaluation before discharge (2) Rhabdomyolysis: Qualifiers: Rhabdomyolysis type: non-traumatic Qualified Code(s): M62.82 - Rhabdomyolysis Code(s): M62.82 - Rhabdomyolysis Status: Acute Assessment and Plan: [place] [address]. Suspect related to walking UA showing 2+ blood but no RBC. He was started on IV fluids. TCK trending down slowly. Cr elevated on admission but normal now with good UOP. IV fluid rate advanced and being treated with intermittent doses of Lasix. TCK dropped to 4855. Hopefully close to 1000 tomorrow Check UA tomorrow to see if blood has resolved. (3) Elevated LFTs: Code(s): R79.89 - Other specified abnormal findings of blood chemistry Status: Acute Assessment and Plan: AST was at 213 and is now trending down. ALT up again today. Hepatitis and HIV negative. Related to above (4) KASSY (acute kidney injury): Code(s): N17.9 - Acute kidney failure, unspecified Status: Acute Assessment and Plan: Cr 1.4 on admission related to rhabdo and dehydration Cr normal now Follow (5) Abrasion of foot: Code(s): S90.819A - Abrasion, unspecified foot, initial encounter Status: Acute Assessment and Plan: Noted and dry. Will leave open to air. secretary receptionist following and apprecaite their input. (6) Homeless: Code(s): Z59.00 - Homelessness unspecified Status: Acute Assessment and Plan: Care coordination to provide information about services in our area (7) Drug abuse: Code(s): F19.10 - Other psychoactive substance abuse, uncomplicated Status: Acute Assessment and Plan: Patient educated about the benefits of abstaining from drug use. Hepatitis panel and HIV negative and patient informed of these results Plan Code status - full DVT prophylaxis - lovenox Subjective Date/time seen: 07/12/24 16:38 Interval history: 33-year-old male with schizophrenia who presents to the emergency department for psychiatric evaluation and suicidal thoughts. He feels well. he denies feeling suicidal now. he is eating well. Voiding normally. Exam Narrative: AF 98.4 154/94 70 18 100% ra Gen - NARD Chest - CTA bilaterally, nml RR CV - RRR S1/S2 Abd - Soft, NT/ND, Positive BS Ext - No pedal edema Neuro - Alert and appropriate. nonfocal Psych - Nml mood and affect. Skin - Warm and dry. dried shallow abrasions bilateral feet Objective Data Vital Signs Vital Signs: Vital Signs - 24 hr 07/11/24 20:00 07/12/24 00:00 07/12/24 08:00 Temperature 98.3 F 98.2 F Pulse Rate 80 74 Respiratory Rate 18 14 Blood Pressure 128/82 140/90 Pulse Oximetry 97 100 Oxygen Delivery Room Air 07/12/24 08:00 Temperature Pulse Rate Respiratory Rate Blood Pressure Pulse Oximetry Oxygen Delivery Room Air Intake/Output Intake/Output: Intake & Output 07/09/24 07/10/24 07/11/24 07/12/24 23:59 23:59 23:59 23:59 Intake Total 5130 4400.0 6740.0 3403.3 Output Total 2525 2925 8700 5675 Balance 2605 1475.0 -1960.0 -2271.7 Meds/Results Medications: Active Medications Generic Name Dose Route Start Last Admin Trade Name Freq PRN Reason Stop Dose Admin Enoxaparin Sodium 40 mg 07/12/24 09:00 07/12/24 09:08 Enoxaparin 40 Mg/0.4 Ml Syringe SUB-Q 40 mg DAILY DANIEL Administration Sodium Chloride 1,000 mls @ 200 mls/hr 07/08/24 21:20 07/12/24 13:39 Normal Saline Iv IV CONT Not Given .Q5H DANIEL Nicotine 1 patch 07/11/24 16:55 07/12/24 09:08 Nicotine (*Vasile) 21 Mg Patch TRANSDERM
[2024-07-12 19:08] LABS: Add Urine Microscopic? NO; Appearance Urine Clear (Clear); Bilirubin Urine Negative (Negative); Blood Urine Negative (Negative); Color Urine Yellow (Yellow); Glucose Urine UA Negative (Negative); Ketones Urine Negative (Negative); Leukocyte Esterase Ur Negative LEU/UL (Negative); Nitrate Urine Negative (Negative); Protein Urine Negative (Negative); Specific Grav Ur 1.013 (1.001-1.035); pH Urine 7.5 (5.0-9.0)
[2024-07-12 23:11] VITALS: BP 134/95; PULSE 75; RESP 14; TEMP 36.7; O2SAT 100
[2024-07-13] MEDS: SODIUM CHLORIDE 0.9% IV 1,000 ML 200 ML IV CONT ×2 (02:56→08:05)
[2024-07-13 03:59] LABS: Hematocrit 40.4 % (42.0-52.0); Mean Corpuscular HGB Conc 34.7 g/dl (32-36); Mean Corpuscular Hemoglobin 30.2 pg (26-34); Mean Corpuscular Volume 87.3 fl (80-100); Mean Platelet Volume 10.4 fl (7.4-10.4); Platelet Count Result 287 k/mm3 (150-375); Red Blood Count 4.63 M/mm3 (4.6-6.20); Red Cell Distribution Width 12.1 % (11.5-14.5); White Blood Count 10.4 K/mm3 (4.5-10.0)
[2024-07-13 04:07] LABS: Alanine Aminotransferase 68 U/L (6-50); Albumin Level 3.5 g/dL (3.5-5.1); Alkaline Phosphatase 69 U/L (38-126); Anion Gap 5 mmol/L (4-12); Aspartate Amino Transferase 92 U/L (17-59); Bilirubin,Total 0.3 mg/dL (0.2-1.3); Blood Urea Nitrogen 8 mg/dL (9-20); Calcium 8.7 mg/dL (8.4-10.2); Carbon Dioxide 30 mmol/L (22-30); Chloride 102 mmol/L (98-107); Creatine Kinase 1509 U/L (55-170); Estimated CRCL calculation 108 ml/min; Estimated Glomerular Filt Rate > 60; Glucose 93 mg/dL (65-110); Magnesium 1.5 mg/dL (1.6-2.3); Potassium 3.6 mmol/L (3.4-5.0); Sodium 137 mmol/L (137-145)
[2024-07-13 08:00] VITALS: BP 142/95; PULSE 88; RESP 18; TEMP 36.9; O2SAT 99
[2024-07-13] MEDS: ENOXAPARIN 40 MG/0.4 ML SYRINGE SUB-Q (09:04)
[2024-07-13] MEDS: FUROSEMIDE INJ 40 MG/4 ML VIAL 20 MG IV PUSH (09:04)
[2024-07-13] MEDS: NICOTINE (*PBKC) 21 MG PATCH 1 PATCH TRANSDERM (09:04)
--- NOTE | 2024-07-13 11:57 | PM.DS ---
DS: Admitting Diagnosis Discharge Date 07/13/24 Admitting Diagnosis Suicidal ideation DS: Discharge Diagnosis Discharge Diagnosis (1) Suicide ideation: Code(s): R45.851 - Suicidal ideations Status: Acute (2) Rhabdomyolysis: Qualifiers: Rhabdomyolysis type: non-traumatic Qualified Code(s): M62.82 - Rhabdomyolysis Code(s): M62.82 - Rhabdomyolysis Status: Acute (3) Elevated LFTs: Code(s): R79.89 - Other specified abnormal findings of blood chemistry Status: Acute (4) KASSY (acute kidney injury): Code(s): N17.9 - Acute kidney failure, unspecified Status: Acute (5) Abrasion of foot: Code(s): S90.819A - Abrasion, unspecified foot, initial encounter Status: Acute (6) Homeless: Code(s): Z59.00 - Homelessness unspecified Status: Acute (7) Drug abuse: Code(s): F19.10 - Other psychoactive substance abuse, uncomplicated Status: Acute DS: Summary Hospital Course Reason for hospitalization: 33-year-old male with schizophrenia who presents to the emergency department for psychiatric evaluation and suicidal thoughts. Please see H&P for details. Hospital Course: Patient presented with complaints of suicidal ideation. He was on Klonopin in the past but did not keep followup appointments. He no longer feels suicidal and has never had a plan. When close to discharge, Crisis evaluated the patient and a safety contract was agreed to[place] [address]. Suspect related to walking and/or drug use. He admitted to using drugs (possibly meth) prior to admission. UDS as negative. UA showing 2+ blood but no RBC. He was started on IV fluids and given intermittent doses of Lasix. TCK trended down to 1500. Repeat UA was clear of blood. Lasix was repeated. Cr elevated on admission but normal now with good UOP. AST was at 213 and is now trending down. ALT up to 70 before improving. Hepatitis and HIV negative. Elevated LFTs probably related to rhabdomyolysis. Noted to have abrasions bilateral feel. He has new shoes but had been walking in barefeet. dispensing audiologist evaluated the patient and recommended keeping the area open and dry. Patient educated about the benefits of abstaining from drug use. He overall did well and was able to be discharged on 07/13/24. Status at Discharge Cognitive/behavioral status at discharge: stable Time Spent with Patient Time attestation: Total time spent providing and/or coordinating discharge services: 35 minutes Time spent: Greater than 30 minutes Exam Narrative: AF 98.5 142/95 88 18 99% ra Gen - NARD Chest - CTA bilaterally, nml RR CV - RRR S1/S2 Abd - Soft, NT/ND, Positive BS Ext - No pedal edema Neuro - Alert and appropriate. nonfocal Psych - Nml mood and affect. Skin - Warm and dry. dried shallow abrasions bilateral feet DS: Data Data Completed and Pending Labs on day of discharge: Labs from last 24 hours 07/13/24 07/12/24 03:33 18:56 WBC 10.4 H RBC 4.63 Hgb 14.0 Hct 40.4 L MCV 87.3 MCH 30.2 MCHC 34.7 RDW 12.1 Plt Count 287 MPV 10.4 Sodium 137 Potassium 3.6 Chloride 102 Carbon Dioxide 30 Anion Gap 5 BUN 8 L Creatinine 0.80 Estim Creat Clear Calc 108 Estimated GFR > 60 Glucose 93 Calcium 8.7 Magnesium 1.5 L Total Bilirubin 0.3 AST 92 H ALT 68 H Alkaline Phosphatase 69 Total Creatine Kinase 1509 H Total Protein 7.0 Albumin 3.5 Urine Color Yellow Urine Appearance Clear Urine pH 7.5 Ur Specific [place] 1.013 Urine Protein Negative Urine Glucose (UA) Negative Urine Ketones Negative Ur Blood (Man) Negative Urine Nitrate Negative Urine Bilirubin Negative Urine Urobilinogen 1.0 Ur Leukocyte Esterase Negative Discharge Plan Discharge Attending physician on discharge: Christiano Aguirre Discharging Clinician: Christiano Aguirre Anticipated
== END 2024-07-13 13:45 | disposition home or self-care (01) | DRG 351 ==
LOC: ANHED 21:16 → ANHIMU 22:33 → ANHICU 07-09 05:53
PROVIDERS: Emergency Medicine; Family Medicine; Admitting Provider Internal Medicine; Emergency Provider Physician Assistant; Visit Provider Internal Medicine
DX: M62.82 Rhabdomyolysis (principal); S90.812A Abrasion, left foot, initial encounter; S90.811A Abrasion, right foot, initial encounter; X58.XXXA Exposure to other specified factors, initial encounter; F20.9 Schizophrenia, unspecified; F19.10 Other psychoactive substance abuse, uncomplicated; F31.9 Bipolar disorder, unspecified; F17.210 Nicotine dependence, cigarettes, uncomplicated; N17.9 Acute kidney failure, unspecified; R45.851 Suicidal ideations; R79.89 Other specified abnormal findings of blood chemistry; Z59.00 Homelessness unspecified; Z20.822 Contact with and (suspected) exposure to COVID-19; Z86.14 Personal history of Methicillin resistant Staphylococcus aureus infection
CPT/HCPCS: 36415; 80053; 80074; 80307; 81001; 81003; 82550; 83735; 84439; 84443; 84480; 85025; 85027; 86703; 87637; 96361; 96374; 99285; A9270; G0378; G0379; G0432; J1650; J1940; J2060; J7030

== ENCOUNTER 2025-02-09 03:04 | Emergency (ER) | payer SELFPAY ==
[2025-02-09 03:03] VITALS: BP 126/78; PULSE 85; RESP 16; TEMP 36.7; O2SAT 100
[2025-02-09 03:31] LABS: Add Urine Microscopic? NO; Appearance Urine Clear (Clear); Bilirubin Urine Negative (Negative); Blood Urine Negative (Negative); Color Urine Yellow (Yellow); Glucose Urine UA Negative (Negative); Ketones Urine Negative (Negative); Leukocyte Esterase Ur Negative LEU/UL (Negative); Nitrate Urine Negative (Negative); Protein Urine Negative (Negative); Specific Grav Ur 1.008 (1.001-1.035); Urobilinogen Urine 0.2 mg/dL (<2.0)
[2025-02-09 03:32] LABS: Basophils Absolute Auto 0.1 K/mm3 (0.0-0.1); Basophils Percent Auto 0.6 % (0.2-1.2); Eosinophils Absolute Auto 0.4 K/mm3 (0-0.3); Eosinophils Percent Auto 2.7 % (0-4.4); Hemoglobin 13.9 g/dL (14.0-18.0); Immature Granulocyte Absolute 0.04 K/mm3 (0.00-0.031); Immature Granulocyte Percent A 0.3 % (0-0.5); Lymphocytes Percent Auto 28.5 % (18.3-44.2); Mean Corpuscular HGB Conc 33.9 g/dl (32-36); Mean Corpuscular Hemoglobin 29.6 pg (26-34); Mean Corpuscular Volume 87.4 fl (80-100); Mean Platelet Volume 10.3 fl (7.4-10.4); Monocytes Absolute Auto 1.2 K/mm3 (0.1-0.6); Monocytes Percent Auto 7.9 % (2.6-8.5); Neutrophils Absolute Auto 8.8 K/mm3 (1.3-6.7); Platelet Count Result 385 k/mm3 (150-375); Red Blood Count 4.69 M/mm3 (4.6-6.20); Red Cell Distribution Width 12.7 % (11.5-14.5); White Blood Count 14.7 K/mm3 (4.5-10.0)
[2025-02-09 03:42] LABS: Alanine Aminotransferase 25 U/L (6-50); Albumin Level 4.6 g/dL (3.5-5.1); Alkaline Phosphatase 82 U/L (38-126); Anion Gap 9 mmol/L (4-12); Aspartate Amino Transferase 29 U/L (17-59); Bilirubin,Total 1.2 mg/dL (0.2-1.3); Blood Urea Nitrogen 15 mg/dL (9-20); Calcium 9.5 mg/dL (8.4-10.2); Carbon Dioxide 29 mmol/L (22-30); Chloride 98 mmol/L (98-107); Estimated CRCL calculation 86 ml/min; Estimated Glomerular Filt Rate > 60; Glucose 80 mg/dL (65-110); Sodium 136 mmol/L (137-145)
[2025-02-09 03:44] LABS: Ethanol < 10 mg/dL (<10)
[2025-02-09 03:49] LABS: Amphetamine Screen Urine Positive (Negative); Barbiturate Screen Urine Negative (Negative); Benzodiazepines Screen Urine Negative (Negative); Cannabinoid Screen Urine Positive (Negative); Cocaine Screen Urine Negative (Negative); Methadone Screen Urine Negative (Negative); Opiate Screen Urine Negative (Negative); Phencyclidine Screen Urine Negative (Negative)
[2025-02-09 04:07] LABS: Influenza A QL RT-PCR Negative (Negative); Influenza B QL RT-PCR Negative (Negative); RSV RNA, RT-PCR Negative (Negative); SARS-CoV-2 RNA PCR Negative (Negative)
--- NOTE | 2025-02-09 04:21 | PC.NURSE ---
[facility] No answer
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
--- NOTE | 2025-02-09 06:29 | ED.GENADULT ---
HPI - General Adult General Chief complaint: Psychiatric Symptoms <John Leiva MD - Last Filed: 02/09/25 06:33> Stated complaint: HI <John Leiva MD - Last Filed: 02/09/25 06:33> Time Seen by Provider: 02/09/25 06:15 <John Leiva MD - Last Filed: 02/09/25 06:33> History of Present Illness HPI narrative: This is a 34-year-old male presenting for outside all ideation. He was found at a gas station with bizarre behavior. Please recalled and then the patient was brought to the hospital. He then started making threats that he wanted to kill Dr. De La Paz at [place]. 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 <John Leiva MD - Last Filed: 02/09/25 06:33> Related Data Home medications: Home Medications ?Medication ?Instructions ?Recorded ?Confirmed ?Last Taken ?Type No Home Medications 07/09/24 07/09/24 Unknown History <John Levia MD - Last Filed: 02/09/25 06:33> Allergies/adverse reactions: Allergies Allergy/AdvReac Type Severity Reaction Status Date / Time No Known Allergies Allergy Unverified 07/08/24 17:26 <John Leiva MD - Last Filed: 02/09/25 06:33> [facility] Past Medical History Medical History: Medical History History of bipolar disorder MRSA infection <John Leiva MD - Last Filed: 02/09/25 06:33> Surgical History Surgical History: Surgical History No pertinent past surgical history <John Leiva MD - Last Filed: 02/09/25 06:33> Social History Social History: Social History Smoking packs per day: 0.5 Smoking cigarettes per day: 10.0 Years smoked: 15 Smoking pack-years: 7.50 Smoking status: Current every day smoker Tobacco type: cigarettes Substance use type: marijuana, crack/cocaine, heroin, amphetamines, sedatives, opiates, painkillers, IV drugs and methamphetamine Last use: about a week ago Do You Feel Safe in your Home?: Yes Lack of Transportation: YES Lack of Food: Sometimes True Current Housing: I Do Not Have Housing Concerned About Future Housing: YES Difficulty Paying Gas/Electric Bills: Decline to Answer Difficulty Paying for Meds: Decline to Answer Currently Unemployed: YES Education: Decline to Answer Difficulty w/ Childcare or Family Care: Decline to Answer Gender identity (if verbalized by the patient): Male Spiritual care concerns: No <John Leiva MD - Last Filed: 02/09/25 06:33> Exam Narrative: APPEARANCE: Agitated Head: atraumatic. EYES: EOMI, NOSE: Atraumatic NECK: Trachea midline RESPIRATORY: No increased rate of breathing clear to auscultation CARDIOVASCULAR: RRR, ABDOMINAL: Non-distended MUSCULOSKELETAl: No obvious deformities NEURO: Alert. Moving 4/4 extremities SKIN:: Warm, dry. Normal color PSYCHIATRIC: Normal affect <John Leiva MD - Last Filed: 02/09/25 06:33> Course Course Emergency Course: 1900: No care issues, awaiting placement. JODI back to Dr. Leiva. <Ankur Tong MD - Last Filed: 02/09/25 18:51> Vital Signs Vital signs: Vital Signs Temperature 98.1 F 02/09/25 03:03 Pulse Rate 85 02/09/25 03:03 Respiratory Rate 16 02/09/25 03:03 Blood Pressure 126/78 02/09/25 03:03 Pulse Oximetry 100 02/09/25 03:03 Oxygen Delivery Room Air 02/09/25 03:03 Temperature 98.1 F 02/09/25 03:03 Pulse Rate 79 02/09/25 07:50 Respiratory Rate 18 02/09/25 07:50 Blood Pressure 115/76 02/09/25 07:50 Pulse Oximetry 100 02/09/25 07:50 Oxygen Delivery Room Air 02/09/25 03:03 <John Leiva MD - Last Filed: 02/09/25 06:33> Vital Signs Temperature 98.1 F 02/09/25 03:03 Pulse Rate 85 02/09/25 03:03 Respiratory Rate 16 02/09/25 03:03 Blood Pressure 126/78 02/09/25 03:03 Pulse Oximetry 100 02/09/25 03:03 Oxygen Delivery Room Air 02/09/25 03:03 Temperature 98.1 F 02/09/25 03:03 Pulse Rate 79 02/09/25 07:50 Respiratory Rate 18 02/09/25 07:50 Blood Pressure 115/76 02/09/25 07:50 Pulse Oximetry 100 02/09/25 07:50 Oxygen Delivery Room Air 02/09/25 03:03 <Ankur Tong MD - Last Filed: 02/09/25 18:51> Medical Decision Making MDM Narrative Medical decision making narrative: -Course: 34-year-old male presenting for psychiatric evaluation. Patient is homicidal. He is positive for amphetamines and cannabinoids. He is cleared for evaluation by psych. Patient placed in psychiatric facility for homicidal ideation. -DDX includes but is not limited to: Substance use disorder, psychiatric illness <John Leiva MD - Last Filed: 02/09/25 06:33> Vital Signs Vital Signs: Vital Signs Temperature 98.1 F 02/09/25 03:03 Pulse Rate 85 02/09/25 03:03 Respiratory Rate 16 02/09/25 03:03 Blood Pressure 126/78 02/09/25 03:03 Pulse Oximetry 100 02/09/25 03:03 Oxygen Delivery Room Air 02/09/25 03:03 Temperature 98.1 F 02/09/25 03:03 Pulse Rate 79 02/09/25 07:50 Respiratory Rate 18 02/09/25 07:50 Blood Pressure 115/76 02/09/25 07:50 Pulse Oximetry 100 02/09/25 07:50 Oxygen Delivery Room Air 02/09/25 03:03 <John Leiva MD - Last Filed: 02/09/25 06:33> Vital Signs Temperature 98.1 F 02/09/25 03:03 Pulse Rate 85 02/09/25 03:03 Respiratory Rate 16 02/09/25 03:03 Blood Pressure 126/78 02/09/25 03:03 Pulse Oximetry 100 02/09/25 03:03 Oxygen Delivery Room Air 02/09/25 03:03 Temperature 98.1 F 02/09/25 03:03 Pulse Rate 79 02/09/25 07:50 Respiratory Rate 18 02/09/25 07:50 Blood Pressure 115/76 02/09/25 07:50 Pulse Oximetry 100 02/09/25 07:50 Oxygen Delivery Room Air 02/09/25 03:03 <Ankur Tong MD - Last Filed: 02/09/25 18:51> Lab Data Result diagrams: 02/09/25 03:17 02/09/25 03:17 <John Leiva MD - Last Filed: 02/09/25 06:33> Labs: Lab Results 02/09/25 02/09/25 Range/Units 03:17 03:22 WBC 14.7 H (4.5-10.0) K/mm3 RBC 4.69 (4.6-6.20) M/mm3 Hgb 13.9 L (14.0-18.0) g/dL Hct 41.0 L (42.0-52.0) % MCV 87.4 (80-100) fl MCH 29.6 (26-34) pg MCHC 33.9 (32-36) g/dl RDW 12.7 (11.5-14.5) % Plt Count 385 H (150-375) k/mm3 MPV 10.3 (7.4-10.4) fl Immature Gran % (Auto) 0.3 (0-0.5) % Neut % (Auto) 60.0 (45.5-73.1) % Lymph % (Auto) 28.5 (18.3-44.2) % Mcdowell % (Auto) 7.9 (2.6-8.5) % Eos % (Auto) 2.7 (0-4.4) % Baso % (Auto) 0.6 (0.2-1.2) % Lymph # (Auto) 4.20 H (0.9-3.2) K/mm3 Mcdowell # (Auto) 1.2 H (0.1-0.6) K/mm3 Eos # (Auto) 0.4 H (0-0.3) K/mm3 Baso # (Auto) 0.1 (0.0-0.1) K/mm3 Abs Immat Gran (auto) 0.04 H (0.00-0.031) K/mm3 Absolute Neuts (auto) 8.8 H (1.3-6.7) K/mm3 Absolute Nucleated RBC 0.000 (0.0-0.012) K/mm3 Nucleated RBC % 0.0 (0.0-0.2) % Sodium 136 L (137-145) mmol/L Potassium 4.0 (3.4-5.0) mmol/L Chloride 98 (98-107) mmol/L Carbon Dioxide 29 (22-30) mmol/L Anion Gap 9 (4-12) mmol/L BUN 15 D (9-20) mg/dL Creatinine 0.96 (0.7-1.3) mg/dL Estim Creat Clear Calc 86 ml/min Estimated GFR > 60 (59 - ) Glucose 80 (65-110) mg/dL Calcium 9.5 (8.4-10.2) mg/dL Total Bilirubin 1.2 (0.2-1.3) mg/dL AST 29 (17-59) U/L ALT 25 (6-50) U/L Alkaline Phosphatase 82 (38-126) U/L Total Protein 8.0 (6.3-8.2) g/dL Albumin 4.6 (3.5-5.1) g/dL TSH (Reflex) 2.140 (0.465-4.68) uIU/mL Urine Color Yellow (Yellow) Urine Appearance Clear (Clear) Urine pH 6.0 (5.0-9.0) Ur Specific [place] 1.008 (1.001-1.035) Urine Protein Negative (Negative) mg/dL Urine Glucose (UA) Negative (Negative) mg/dL Urine Ketones Negative (Negative) mg/dL Ur Blood (Man) Negative (Negative) Urine Nitrate Negative (Negative) Urine Bilirubin Negative (Negative) Urine Urobilinogen 0.2 (<2.0) mg/dL Leukocyte Esterase Rfl Negative (Negative) SYED/UL Urine Opiates Screen Negative (Negative) Urine Methadone Screen Negative (Negative) Ur Barbiturates Screen Negative (Negative) Ur Phencyclidine Scrn Negative (Negative) Ur Amphetamine Screen Positive A (Negative) U Benzodiazepines Scrn Negative (Negative) Urine Cocaine Screen Negative (Negative) U Cannabinoids Screen Positive A (Negative) Ethyl Alcohol < 10 (<10) mg/dL Influenza A (RT-PCR) Negative (Negative) Influenza B (RT-PCR) Negative (Negative) RSV (RT-PCR) Negative (Negative) SARS-CoV-2 RNA (RT-PCR) Negative (Negative) <John Leiva MD - Last Filed: 02/09/25 06:33> Lab Results 02/09/25 02/09/25 Range/Units 03:17 03:22 WBC 14.7 H (4.5-10.0) K/mm3 RBC 4.69 (4.6-6.20) M/mm3 Hgb 13.9 L (14.0-18.0) g/dL Hct 41.0 L (42.0-52.0) % MCV 87.4 (80-100) fl MCH 29.6 (26-34) pg MCHC 33.9 (32-36) g/dl RDW 12.7 (11.5-14.5) % Plt Count 385 H (150-375) k/mm3 MPV 10.3 (7.4-10.4) fl Immature Gran % (Auto) 0.3 (0-0.5) % Neut % (Auto) 60.0 (45.5-73.1) % Lymph % (Auto) 28.5 (18.3-44.2) % Mcdowell % (Auto) 7.9 (2.6-8.5) % Eos % (Auto) 2.7 (0-4.4) % Baso % (Auto) 0.6 (0.2-1.2) % Lymph # (Auto) 4.20 H (0.9-3.2) K/mm3 Mcdowell # (Auto) 1.2 H (0.1-0.6) K/mm3 Eos # (Auto) 0.4 H (0-0.3) K/mm3 Baso # (Auto) 0.1 (0.0-0.1) K/mm3 Abs Immat Gran (auto) 0.04 H (0.00-0.031) K/mm3 Absolute Neuts (auto) 8.8 H (1.3-6.7) K/mm3 Absolute Nucleated RBC 0.000 (0.0-0.012) K/mm3 Nucleated RBC % 0.0 (0.0-0.2) % Sodium 136 L (137-145) mmol/L Potassium 4.0 (3.4-5.0) mmol/L Chloride 98 (98-107) mmol/L Carbon Dioxide 29 (22-30) mmol/L Anion Gap 9 (4-12) mmol/L BUN 15 D (9-20) mg/dL Creatinine 0.96 (0.7-1.3) mg/dL Estim Creat Clear Calc 86 ml/min Estimated GFR > 60 (59 - ) Glucose 80 (65-110) mg/dL Calcium 9.5 (8.4-10.2) mg/dL Total Bilirubin 1.2 (0.2-1.3) mg/dL AST 29 (17-59) U/L ALT 25 (6-50) U/L Alkaline Phosphatase 82 (38-126) U/L Total Protein 8.0 (6.3-8.2) g/dL Albumin 4.6 (3.5-5.1) g/dL TSH (Reflex) 2.140 (0.465-4.68) uIU/mL Urine Color Yellow (Yellow) Urine Appearance Clear (Clear) Urine pH 6.0 (5.0-9.0) Ur Specific [place] 1.008 (1.001-1.035) Urine Protein Negative (Negative) mg/dL Urine Glucose (UA) Negative (Negative) mg/dL Urine Ketones Negative (Negative) mg/dL Ur Blood (Man) Negative (Negative) Urine Nitrate Negative (Negative) Urine Bilirubin Negative (Negative) Urine Urobilinogen 0.2 (<2.0) mg/dL Leukocyte Esterase Rfl Negative (Negative) SYED/UL Urine Opiates Screen Negative (Negative) Urine Methadone Screen Negative (Negative) Ur Barbiturates Screen Negative (Negative) Ur Phencyclidine Scrn Negative (Negative) Ur Amphetamine Screen Positive A (Negative) U Benzodiazepines Scrn Negative (Negative) Urine Cocaine Screen Negative (Negative) U Cannabinoids Screen Positive A (Negative) Ethyl Alcohol < 10 (<10) mg/dL Influenza A (RT-PCR) Negative (Negative) Influenza B (RT-PCR) Negative (Negative) RSV (RT-PCR) Negative (Negative) SARS-CoV-2 RNA (RT-PCR) Negative (Negative) <Ankur Tong MD - Last Filed: 02/09/25 18:51> Discharge Plan Discharge Clinical Impression: Drug abuse, Homicidal ideations <John Leiva MD - Last Filed: 02/09/25 06:33> Patient Disposition: Psychiatric Hosp <John Leiva MD - Last Filed: 02/09/25 06:33> Condition: Stable <John Leiva MD - Last Filed: 02/09/25 06:33> Patient Language: Faroese <John Leiva MD - Last Filed: 02/09/25 06:33> Prescriptions: No Action No Home Medications <John Leiva MD - Last Filed: 02/09/25 06:33> Follow-up/Referrals: UNKNOWN,DOCTOR [Primary Care Provider] - <John Leiva MD - Last Filed: 02/09/25 06:33>
--- OUTSIDE RECORDS SUMMARY | 2025-02-09 07:19 | XMS_ITS | Continuity of Care Document ---
Author Organization [facility] Address [address] [place] [address] Phone Care Team Providers Care Drug Abuse Social Worker Name Role Phone Yamila Damian LCSW Unavailable Unavailab le Advance Directives Directive Yes / No Effective Date File Name No Information Encounters Encounter Description Practice Location Reason(s) For Visit Diagnoses Date Provider Providers Copied on Encounter [facility], [address] [place] [address], [id number], tel:[phone] [facility] Candido Driscoll. [address] [place] [address], [id number], [place]. tel:[phone] [facility], [address] [place] [address], [id number], [place] tel:[phone] [facility] Candido Driscoll. [address] [place] [address], [id number], [place]. tel:[phone] As per patient privacy policy some of the clinical information may not be visible. Family History Family Member Type Diagnosis Age At Onset No Information Payers Payer name Insurance type Covered constitution party ID Authoriza tion(s) No Information Social History Type Description Quantity Date Captured Comments Sex Male Smoking Status No Information Sexual Orientation Choose not to disclose Gender Identity Male Chief Complaint And Reason For Visit No Information Plan Of Treatment Date Type Action Status Goal FIT. Due on due Goal Dental exam. Due on 024 due Goal HIV. Due on due Goal Nutritional Screening Assess ment. Due on due Goal Hep C [id number]. Due on due Goal Depression screening. Due on due Goal FIT-DNA. Due on due Goal Health Literacy. Due on due Goal Unhealthy drug use screening . Due on due Goal Tdap. Due on due Goal Colonoscopy. Due on due Goal Influenza vaccine. Due on due Goal Hepatitis C screening. Due o n due Goal Self Management Goals. Due o n due Goal Hep C [id number]. Due on due Goal Colonoscopy. Due on due Goal Depression screening. Due on due Goal FIT. Due on due Goal Hepatitis C screening. Due o n due Goal Dental exam. Due on due Goal Health Literacy. Due on due Goal Tdap. Due on due Goal Unhealthy drug use screening . Due on due Goal Nutritional Screening Assess ment. Due on due Goal Self Management Goals. Due o n due Goal FIT-DNA. Due on due Goal Influenza vaccine. Due on Oc due Goal HIV. Due on due History Of Present Illness Encounter Date Complaint History Of Prese nt Illness No Information Instructions Date Instruction Additional Infor mation No Information Assessments Type Assessment Date No Information As per patient privacy policy some of the clinical information may not be visible. Patient Care Teams Name Effective Dates (start - stop) Status Members No Information
--- OUTSIDE RECORDS SUMMARY | 2025-02-09 07:19 | XMS_ITS | Encounter Summary ---
Author Organization [facility] Address [facility] [place] [address] Care Team Providers Care Cupola Worker Name Role Phone None, Provider Primary Care Provider Yudelka ble Encounter Details Date Type Department Care Team (Late st Contact Info) Description 02/20/2021 Hospital Follow-up Call [place] [address] [place] [address] Nayana Farooq RN Social History Tobacco Use Types Packs/Day Years Used Date Smoking Tobacco: Every Day Cigarettes Smokeless Tobacco: Never Alcohol Use Standard Drinks/Week Comments Not Currently 0 (1 standard drink = 0.6 oz pur e alcohol) Sex and Gender Information Value Date Recorded Sex Assigned at Male 01/24/2025 5:48 PM CDT Legal Sex Male 11:18 PM CDT Gender Identity Not on file Sexual Orientation Not on file COVID-19 Exposure Response Date Recorded In the last month, have you been in contact with someone who was confirmed or suspected to have Coronavirus / COVID-19? No / Unsure 02/14/2021 10:57 PM CDT documented as of this encounter Functional Status * RETIRED Are you deaf or do you have serious difficulty hearing Answer Date of Assessment Author Status No 02/15/2021 8:13 AM CDT Activ e * RETIRED Are you blind or do you have serious difficulty seeing, even when wearing glasses? Answer Date of Assessment Author Status No 02/15/2021 8:13 AM CDT Activ e * Do you have serious difficulty walking or climbing stairs? Answer Date of Assessment Author Status No 02/15/2021 8:13 AM CDT Alexandra Chauhan RN Ac tive * Do you have difficulty dressing or bathing? Answer Date of Assessment Author Status No 02/15/2021 8:13 AM CDT Alexandra Chauhan RN Ac tive * Because of a physical, mental, or emotional condition, do you have difficulty doing errands alone such as visiting a doctor's office or shopping? Answer Date of Assessment Author Status No 02/15/2021 8:13 AM CDT Alexandra Chauhan RN Ac tive documented as of this encounter Mental Status * Because of a physical, mental, or emotional condition, do you have serious difficulty concentrating, remembering, or making decisions? Answer Entry Date Author Status No 02/15/2021 8:13 AM CDT Alexandra Chauhan RN Ac tive documented in this encounter Plan of Treatment Not on file documented as of this encounter Goals Goal Patient Goal Type Associated Problems Recent Progress Patient-Stated? Author Health - patient able to perform ADLs independently General On track( 021 3:34 PM CDT) Riley Kimbrough RN documented as of this encounter Visit Diagnoses Not on filedocumented in this encounter Additional Health Concerns Infection Onset Date Last Indicated Resolved Time MRSA Comment:02/15/21 right cheek (SB) 02/17/2021 02/17/2021 COVID-19 Rule Out 02/25/2021 02/25/2021 02/25/2021 11:44 AM CDT COVID-19 Rule Out 09/02/2024 09/02/2024 09/02/2024 8:09 PM CDT COVID-19 Rule Out 01/24/2025 01/24/2025 01/24/2025 7:00 PM CDT COVID-19 Rule Out 02/01/2025 02/01/2025 02/01/2025 1:55 AM CDT documented as of this encounter Care Teams Cupola Worker Relationship Specialty Start Date End Date None, Provider, PCP - General 08/14/20 documented as of this encounter
--- OUTSIDE RECORDS SUMMARY | 2025-02-09 07:19 | XMS_ITS | Patient Health Record ---
Author Organization [facility] Address [address] [place] [address] Care Team Providers Care Research Electrician Name Role Phone Ankur Nair Unavailable [phone] Migration, Provider Unavailable Unavailable Allergies No Known Allergies Reason For Referral No Information Medications Medication SIG (Take, Route, Fr equency, Duration) Notes Start Date End Date Status Invega Sustenna 156 MG/ML Inject 1 syringe intramuscularly once a month Intramuscular Active Problems Problem Type SNOMED Code ICD Code Onset Dates Problem Status W/U Status Risk Notes Problem Other stimulant dependence, 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
--- OUTSIDE RECORDS SUMMARY | 2025-02-09 07:19 | XMS_ITS ---
Author Organization [facility] Address [address] [place] [address] Care Team Providers Care Network Lead Name Role Phone Ankur Nair Unavailable [phone] Migration, Provider Unavailable Unavailable Allergies No Known Allergies REASON FOR VISIT [facility] Medications Medication SIG (Take, Route, Fr equency, Duration) Notes Start Date End Date Status Invega Sustenna 156 MG/ML Inject 1 syringe intramuscularly once a month Intramuscular Active Encounters Encounter Location Date Provider Diagnosis [address] [address] 11/25/2024 Provider Migration Plan Of Treatment No Information Progress Notes * INDRA ELLIOTT WDOB: 2 (34 yo M)Acc No.[id number]:11/25/2024 Patient: Lynnette DUGAN INDRA W :1990 A ge:34 Y S ex:Male Address:[address] [place] [address], [address] Subjective: * Chief Complaints: * E MR-Bull * Medical History: Bipolar d/o Depression LIZZETTE- meth, sober 1yr * Surgical History: None reported PAST SurgHX Till 09/17/2022 * Hospitalization/Major Diagno stic Procedure: * Family History: M igrated Family History: : family history : Mom: mental disorderDad: mental disorderGrandparent: arthritis, asthma, heart condition, HTN, HLD, mental disorder . * Social History: M igrated Social History: M igrated Social History: alcohol use : no , chewing tobacco use : Former , Foaming Machine Operator Insecurity (In the past year, have you or someone you in your household had to go without) : No , cigar use : no , cigarette use : yes , Clothing Insecurity (In the past year, have you or someone you in your household had to go without) : No , Do you feel safe where you live? : Yes , Does patient abuse drugs? : positive , drug use : yes , drug use, illicit, drug of choice : other , Has lack of transportation kept you from medical appointments or from getting your medications? : No , HOUSING STATUS : Refused , How often do you see or talk to people that you care about and feel close to? : Less than once a week , In the past 3 months, have you spent more than 2 nights in a row in a usp or skilled nursing? : No , In the past year, have you been afraid of a partner, ex-partner, or service operations manager because they made you feel emotionally or physically unsafe? : No , Medications or Medical Care Insecurity (In the past year, have you or someone you in your household had to go without) : No , passive cigarette smoke exposure : yes , phone insecurity - in the past year, have you or someone in your household had to go without a phone? : No , smoking status : current every day smoker , smoking/tobacco cessation, patient education and counseling : yes , social determinants of health, are you worried about losing your housing? : Refused , social history : [employer] , Utility Insecurity (In the past year, have you or someone you in your household had to go without) : No , What is your total monthly income : Refused. * Medications: T akingInvega Sustenna 156 MG/ML Suspension Prefilled Syringe Inject 1 syringe intramuscularly once a month Intramuscular Taking Invega Sustenna 156 MG/ML Suspension Prefilled Syringe Inject 1 syringe intramuscularly once a month Intramuscular * Allergies: N .K.D.A. Objective: * Physical Examination: Plan: * Treatment: * Procedure Codes: Billing Information: * Visit Code: * Procedure Codes: * * Date:
--- OUTSIDE RECORDS SUMMARY | 2025-02-09 07:19 | XMS_ITS ---
Author Organization [facility] Address [address] [place] [phone] Care Team Providers Care Open End Spinning Operator Name Role Phone Ankur Nair Unavailable [phone] Migration, Provider Unavailable Unavailable REASON FOR VISIT EMR-Bull Encounters Encounter Location Date Provider Diagnosis [address] [address] 11/24/2024 Provider Migration Plan Of Treatment Medication Medication Name Sig Start Date Stop Date Notes Invega Sustenna 117 MG/0.75ML Inject 1 syringe intramuscularly once a month Intramuscular Progress Notes * INDRA ELLIOTT WDOB: 2 (34 yo M)Acc No.[id number]:11/24/2024 Patient: Lynnette INDRA DUGAN :1990 A ge:34 Y S ex:Male Address:[address] [place] [address], [address] * Refills Stop Invega Sustenna Suspension Prefilled Syringe, 117 MG/0.75ML, Intramuscular, Inject 1 syringe intramuscularly once a month Subjective: * Chief Complaints: * E MR-Bull * Medical History: * Surgical History: * Hospitalization/Major Diagno stic Procedure: * Medications: Objective: * Physical Examination: Plan: * Treatment: * Procedure Codes: Billing Information: * Visit Code: * Procedure Codes: * * Date:
--- OUTSIDE RECORDS SUMMARY | 2025-02-09 07:19 | XMS_ITS | Continuity of Care Document ---
Author Organization [facility] Address [address] [place] [address] [place] [address] Phone Care Team Providers Care Cytotechnologist/Histotechnologist Name Role Phone Danial Hernandez MD Unavailable Unavailable Advance Directives Directive Yes / No Effective Date File Name No Information Encounters Encounter Description Practice Location Reason(s) For Visit Diagnoses Date Provider Providers Copied on Encounter [facility], [address] [place], [place], [id number], [place] tel:[phone] [facility] No Information David Barrow. [address] [place], [place], [id number], [place]. tel:[phone] Family History Family Member Type Diagnosis Age At Onset No Information Payers Payer name Insurance type Covered republican ID Authoriza tion(s) No Information Social History Type Description Quantity Date Captured Comments Sex Male Smoking Status No Information Chief Complaint And Reason For Visit No Information Plan Of Treatment Date Type Action Status No Information History Of Present Illness Encounter Date Complaint History Of Prese nt Illness No Information Instructions Date Instruction Additional Infor mation No Information Assessments Type Assessment Date No Information
--- OUTSIDE RECORDS SUMMARY | 2025-02-09 07:19 | XMS_ITS | Clinical Summary ---
Author Organization [facility] Address [address] [place] [address] Care Team Providers Care Banking Representative Name Role Phone None, Provider MD Primary Care Provider Unavaila ble Allergies Active Allergy Reactions Criticality Noted Date Comments Adapalene-Benzoyl Peroxide Hives 4 Medications No known medications Active Problems Problem Noted Date Diagnosed Date Cellulitis of neck 02/25/2021 Facial cellulitis 08/17/2020 Encounters Date Type Department Care Team Description 02/01/2025 6:50 AM CDT - 02/01/2025 1:[address] [facility] [id number] [place] [id number] Trung Rodríguez MD Suicidal Ideation Discharge Disposition: Transfer to [facility] 02/01/2025 Travel 01/31/2025 2:46 PM CDT - 02/01/2025 1:[address] [facility] Emergency Room [address] [place] [address] Tarun Berry MD Psychiatric Problem Discharge Disposition: Home or Self Care (Routine Discharge) 01/31/2025 Travel 01/24/2025 6:22 PM CDT - 01/25/2025 6:16 PM CDT Emergency [facility] [address] [place] [address] [place] [address] Darell Lemon DO Heberer, Brian James, DO Psychiatric Problem Discharge Disposition: Transfer to Acute [facility] 01/24/2025 Travel from Last 3 Months Immunizations Name Administration Dates Next Due Dtp 12/15/1995, 3,06/11/1992, 992,01/21/1992 Fluzone 6 Months+ Quad (0.5 mL Prefilled Syringe) 08/21/2020 HPV GARDASIL 9-VALENT 04/19/2017,08/10/2016 Hepatitis A (Generic) 04/19/2017,08/10/2016 Hepatitis B Pediatric 05/15/1996,01/12/1996,0211/1995 Hib (Generic) 07/08/1993, 2,03/17/1992, 992 Influenza (Generic) 08/10/2016 MMR 12/15/1995,10/19/1993 Opv 12/15/1995, 3,03/17/1992, 992 Td (TDVAX) 09/21/2021 Tdap (Boostrix) 02/24/2021 Tdap (Generic) 08/10/2016 Family History Medical History Relation Comments No Known Problems Father No Known Problems Mother Relation Status Comments Father Mother Social History Tobacco Use Types Packs/Day Years Used Date Smoking Tobacco: Every Day Cigarettes Smokeless Tobacco: Never Tobacco Cessation:Ready to Q uit: Not Asked; Counseling Given: Not Answered Alcohol Use Standard Drinks/Week Comments Yes 0 (1 standard drink = 0.6 oz pur e alcohol) once every 6 months Sex and Gender Information Value Date Recorded Sex Assigned at Male 01/24/2025 5:48 PM CDT Legal Sex Male 11:18 PM CDT Gender Identity Not on file Sexual Orientation Not on file Last Filed Vital Signs Vital Sign Reading Time Taken Comments Blood Pressure 109/62 02/01/2025 12:30 PM CDT Pulse 83 02/01/2025 12:30 PM CDT Temperature 36.2 C (97.2 F) 02/01/2025 6:54 AM CDT Respiratory Rate 18 02/01/2025 12:3 0 PM CDT Oxygen Saturation 96% 02/01/2025 12: 30 PM CDT Inhaled Oxygen Concentration - - Weight 70.7 kg (155 lb 13.8 oz) 02/01/2025 6:50 AM CDT Height 172.7 cm (5' 8 ) 02/01/2025 6:50 AM CDT Body Mass Index 23.7 02/01/2025 6:50 AM CDT Plan of Treatment Health Maintenance Due Date Last Done Comments Annual Physical 1994 Pneumococcal Vaccine: Pediatrics (0 to 5 Years) and At-Risk Patients (6 to 64 Years) (1 of 2 - PCV) 1997 HPV Vaccines (3 - Male 3-dose series) 07/12/2017 04/19/2017, 08/10/2016 COVID-19 Vaccine (1 - season) 2024 DTaP, Tdap and Td Vaccines (4 - Td or Tdap) 09/21/2031 09/21/2021, 02/24/2021, 08/10/2016, Additional history exists Hepatitis B Vaccines Completed 05/15/1996, 01/12/1996, 12/15/1995 Hepatitis C Completed 04/11/2022, 02/25/2021 Meningococcal B Vaccine Aged Out No l onger eligible based on patient's age to complete this topic Meningococcal Vaccine Aged Out No eulalio latasha eligible based on patient's age to complete this topic RSV Immunizations Under 20 Months Aged Out No longer eligible based on patient's age to complete this topic Goals Goal Patient Goal Type Associated Problems Recent Progress Patient-Stated? Author Health - patient able to perform ADLs independently General On track( 3:34 PM CDT) No Riley Mena, horticulture teacher - family caregiver with be involved in care transitions and discharge planning General On track( 3:03 PM CDT) No Shelli Nichole, priming powder premix blender Procedure Name Priority Date/Time Associated Diagnosis Comments DRUG SCREEN RAPID STAT 02/01/2025 7:1 2 AM CDT HC URINALYSIS AUTO W/O MICRO STAT 02/01/2025 7:12 AM CDT SALICYLATE STAT 02/01/2025 6:59 AM CDT THYROID STIM HORMONE TSH STAT 02/01/2025 6:59 AM CDT ACETAMINOPHEN STAT 02/01/2025 6:59 AM CDT ETHANOL STAT 02/01/2025 6:59 AM CDT COMPREHENSIVE METABOLIC PANEL STAT 02/01/2025 6:59 AM CDT CBC W/DIFF AUTOMATED STAT 02/01/2025 6:59 AM CDT CORONAVIRUS (COVID 19) STAT 1:34 AM CDT CBC W/DIFF AUTOMATED STAT 01/31/2025 9:27 PM CDT LACTIC ACID STAT 01/31/2025 9:27 PM CDT BETA-HYDROXYBUTYRATE STAT 01/31/2025 9:27 PM CDT DRUG SCREEN RAPID STAT 01/31/2025 3:1 0 PM CDT SALICYLATE STAT 01/31/2025 2:51 PM CDT ACETAMINOPHEN STAT 01/31/2025 2:51 PM CDT ETHANOL STAT 01/31/2025 2:51 PM CDT COMPREHENSIVE METABOLIC PANEL STAT 01/31/2025 2:51 PM CDT CBC W/DIFF AUTOMATED STAT 01/31/2025 2:51 PM CDT ECG 12-LEAD STAT 01/31/2025 2:45 PM CDT CBC W/DIFF AUTOMATED STAT 01/25/2025 5:45 AM CDT CBC W/DIFF AUTOMATED STAT 01/24/2025 10:01 PM CDT URINALYSIS AUTO DIP Routine 01/24/2025 6 :14 PM CDT DRUG SCREEN RAPID STAT 01/24/2025 6:1 4 PM CDT CORONAVIRUS (COVID 19) STAT 6:13 PM CDT SALICYLATE STAT 01/24/2025 6:10 PM CDT THYROID STIM HORMONE TSH STAT 01/24/2025 6:10 PM CDT ACETAMINOPHEN STAT 01/24/2025 6:10 PM CDT ETHANOL STAT 01/24/2025 6:10 PM CDT COMPREHENSIVE METABOLIC PANEL STAT 01/24/2025 6:10 PM CDT CBC W/DIFF AUTOMATED STAT 01/24/2025 6:10 PM CDT ECG 12-LEAD STAT 01/24/2025 6:05 PM CDT HEPATITIS C ANTIBODY Routine 02/25/2021 3:18 PM CDT from Last 3 Months or Most Recently Relevant to Health Maintenance Results * (ABNORMAL) DRUG SCREEN RAPID (02/01/2025 7:12 AM CDT) Only the most recent of3 resultswithin the time period is included. AMPHETAMINE (U) DETECTED(A) NONE DETECTED 02/01/2025 7:44 AM CDT [facility] BARBITURATES SCREEN (U) NONE DETECTED NONE DETECTED 02/01/2025 7:44 AM CDT [facility] BENZODIAZEPINES SCREEN (U) DETECTED(A) NONE DETECTED 02/01/2025 7:44 AM CDT [facility] BUPRENORPHINE SCREEN (U) NONE DETECTED NONE DETECTED 02/01/2025 7:44 AM CDT [facility] COCAINE METABOLITES (U) NONE DETECTED NONE DETECTED 02/01/2025 7:44 AM CDT [facility] METHAMPHETAMINE (U) DETECTED(A) NONE DETECTED 02/01/2025 7:44 AM CDT [facility] METHADONE (U) NONE DETECTED NONE DETECTED 02/01/2025 7:44 AM CDT [facility] OPIATE SCREEN (U) NONE DETECTED NONE DETECTED 02/01/2025 7:44 AM CDT [facility] OXYCODONE SCREEN (U) NONE DETECTED NONE DETECTED 02/01/2025 7:44 AM CDT [facility] PHENCYCLIDINE PCP (U) NONE DETECTED NONE DETECTED 02/01/2025 7:44 AM CDT [facility] CANNABINOIDS SCREEN (U) DETECTED(A) NONE DETECTED 02/01/2025 7:44 AM CDT [facility] TRICYCLIC ANTIDEPRESSANT SCREEN (U) NONE DETECTED NONE DETECTED 02/01/2025 7:44 AM CDT [facility] Comment: NOTE: RESULTS OF THIS DRUG SCREEN SHOULD BE USED FOR MEDICAL PURPOSES ONLY AND NOT FOR LEGAL OR EMPLOYEMENT PURPOSES. MEDICATIONS CONTAINING EPHEDRINE MAY CAUSE FALSE POSITIVE AMPHETAMINE. AMPHETAMINE- 500 NG/ML BARBITURATE- 200 NG/ML BENZODIAZEPINE- 150 NG/ML BUPRENORPHINE- 10 NG/ML COCAINE- 150 NG/ML METHAMPHETAMINES- 500 NG/ML METHADONE- 200 NG/ML OPIATE- 100 NG/ML OXYCODONE- 100 NG/ML PCP- 25 NG/ML THC- 50 NG/ML TCA- 300 NG/ML URINE SPECIMEN / Unknown 02/01/2025 7:12 AM CDT Trung Rodríguez MD URINE ORDERABLES Final Result [facility] [address] [place] [address], [place] [phone] * (ABNORMAL) URINALYSIS (02/01/2025 7:12 AM CDT) COLOR (U) YELLOW 02/01/2025 7:32 AM CDT [facility] TRANSPARENCY CLEAR 02/01/2025 7:32 AM CDT [facility] SPECIFIC GRAVITY (U) >1.030(H) 1.000 - 1.030 02/01/2025 7:32 AM CDT [facility] U PH 6.0 5.0 - 9.0 02/01/2025 7:32 AM CDT [facility] LEUKOCYTES (U) NEGATIVE NEGATIVE 02/01/2025 7:32 AM CDT [facility] NITRITES NEGATIVE NEGATIVE 02/01/2025 7:32 AM CDT [facility] PROTEIN RANDOM (U) NEGATIVE NEGATIVE 02/01/2025 7:32 AM T [facility] GLUCOSE (U) NEGATIVE NEGATIVE 02/01/2025 7:32 AM T [facility] KETONES MG/DL (U) 1+(A) NEGATIVE 02/01/2025 7:32 AM T [facility] BILIRUBIN (U) NEGATIVE NEGATIVE 02/01/2025 7:32 AM T [facility] BLOOD (U) NEGATIVE NEGATIVE 02/01/2025 7:32 AM T [facility] URINE SPECIMEN OBTAINED BY CLEAN CATCH PROCEDURE / Unknown 02/01/2025 7:12 AM CDT us Trung Rodríguez MD URINE ORDERABLES Final Result [facility] [address] [place] [address], [place] [phone] * (ABNORMAL) COMPREHENSIVE METABOLIC PANEL (02/01/2025 6:59 AM CDT) Only the most recent of3 resultswithin the time period is included. GLUCOSE 93 70 - 99 MG/DL 02/01/2025 7:33 AM CDT [facility] BUN 11 7 - 18 MG/DL 02/01/2025 7:33 AM [facility] CREATININE S/P/B 0.73 0.7 - 1.3 MG/DL 02/01/2025 7:33 AM [facility] SODIUM S/P/B 135(L) 136 - 145 MMOL/L 02/01/2025 7:33 AM [facility] POTASSIUM S/P/B 4.1 3.5 - 5.1 MMOL/L 02/01/2025 7:33 AM [facility] CHLORIDE S/P/B 102 100 - 108 MMOL/L 02/01/2025 7:33 AM [facility] CO2 26.1 21 - 32 MMOL/L 02/01/2025 7:33 AM [facility] CALCIUM S/P/B 8.7 8.5 - 10.1 MG/DL 02/01/2025 7:33 AM [facility] BILIRUBIN TOTAL S/P/B 1.5(H) 0.2 - 1.2 MG/DL 02/01/2025 7:33 AM [facility] TOTAL PROTEIN S/P/B 6.6 6.4 - 8.2 G/DL 02/01/2025 7:33 AM [facility] ALBUMIN S/P/B 3.5 3.4 - 5.0 G/DL 02/01/2025 7:33 AM [facility] AST 51(H) 15 - 37 U/L 02/01/2025 7:33 AM [facility] ALT 34 16 - 60 U/L 02/01/2025 7:33 AM [facility] ALKALINE PHOSPHATASE S/P/B 96 50 - 136 U/L 02/01/2025 7:33 AM [facility] ANION GAP 6.9 5 - 15 MMOL/L 02/01/2025 7:33 AM CDT [facility] BUN CREATININE RATIO 15.1 6 - 26 02/01/2025 7:33 AM CDT [facility] A/G RATIO 1.1 1.0 - 2.0 RATIO 02/01/2025 7:33 AM CDT [facility] GFR ESTIMATE >90 >90 ML/MIN/1.7 3 M2 02/01/2025 7:33 AM CDT [facility] Comment: NOTE: eGFR is not calculated for patients <18 years of age. This is an estimated GFR calculation using the new CKD EPI creatinine equation without race and so does not require a correction factor for race. This estimated GFR should not be used for calculating drug doses. 02/01/2025 6:59 AM CDT Trung Rodríguez MD LABORATORY Final Result [facility] [address] [place] [address], * (ABNORMAL) CBC W/DIFF AUTOMATED (02/01/2025 6:59 AM CDT) Only the most recent of6 resultswithin the time period is included. WBC 19.92(H) 4.4 - 11.0 x10'3/uL 02/01/2025 7:33 AM CDT [facility] RBC 4.71 4.50 - 5.90 x10'6/uL 02/01/2025 7:33 AM CDT [facility] HGB 14.1 14.0 - 17.5 G/DL 02/01/2025 7:33 AM CDT [facility] HCT 41.4(L) 41.5 - 50.4 % 02/01/2025 7:33 AM CDT [facility] MCV 87.9 80.0 - 96.0 FL 02/01/2025 7:33 AM CDT [facility] MCH 29.9 26.5 - 31.4 PG 02/01/2025 7:33 AM T [facility] MCHC 34.1 31.9 - 34.8 G/DL 02/01/2025 7:33 AM T [facility] RDW 12.5 12.3 - 14.3 % 02/01/2025 7:33 AM T [facility] PLT 359(H) 151 - 353 x10'3/uL 02/01/2025 7:33 AM T [facility] MPV 9.9 9.7 - 11.9 FL 02/01/2025 7:33 AM T [facility] RBC MORPHOLOGY NORMAL 02/01/2025 7:33 AM [facility] PLT MORPH. NORMAL 02/01/2025 7:33 AM [facility] WBC MORPHOLOGY NORMAL 02/01/2025 7:33 AM [facility] LYMPHOCYTES % 18.4 15.8 - 45.0 % 02/01/2025 7:33 AM [facility] NEUTROPHILS % 71.7 42.1 - 71.9 % 02/01/2025 7:33 AM T [facility] MONOCYTES % 6.7 5.7 - 12.5 % 02/01/2025 7:33 AM T [facility] EOSINOPHILS 2.3 0.0 - 5.6 % 02/01/2025 7:33 AM [facility] BASOPHILS 0.5 0.0 - 1.3 % 02/01/2025 7:33 AM T [facility] ABS. NEUTROPHILS 14.28(H) 1.40 - 6.00 x10'3/uL 02/01/2025 7:33 AM CDT [facility] IMMATURE GRANS % 0.4 0.0 - 0.5 % 02/01/2025 7:33 AM CDT [facility] ABS. LYMPHOCYTES 3.67 0.80 - 4.70 x10'3/uL 02/01/2025 7:33 AM CDT [facility] 02/01/2025 6:59 AM CDT us Trung Rodríguez MD LABORATORY Final Result Performing Organization Address [facility] de Phone Number [facility] [address] [place] [address], [place] [phone] * THYROID STIM HORMONE, TSH (02/01/2025 6:59 AM CDT) Only the most recent of2 resultswithin the time period is included. TSH 2.490 0.358 - 3.74 uIU/ML 02/01/2025 7:33 AM CDT [facility] Comment: HIGH DOSES OF BIOTIN MAY INTERFERE WITH THIS TEST RESULT. CORRELATION TO CLINICAL HISTORY AND PRESENTATION RECOMMENDED. 02/01/2025 6:59 AM CDT us Trung Rodríguez MD LABORATORY Final Result Performing Organization Address [facility] Co de Phone Number [facility] [address] [place] [address], [place] [phone] * (ABNORMAL) SALICYLATE (02/01/2025 6:59 AM CDT) Only the most recent of3 resultswithin the time period is included. SALICYLATES 1.6(L) 2.8 - 20.0 MG/DL 02/01/2025 7:15 AM CDT [facility] Comment: THERAPEUTIC: 2.8-20.0 Toxic Level: >=30 02/01/2025 6:59 AM CDT us Trung Rodríguez MD LABORATORY Final Result Performing Organization Address [facility] Co de Phone Number [facility] [address] [place] [address], * ETHANOL (02/01/2025 6:59 AM CDT) Only the most recent of3 resultswithin the time period is included. ALCOHOL S/P/B <0.003 <0.003 G/DL 02/01/2025 7:33 AM CDT [facility] 02/01/2025 6:59 AM CDT us Trung Rodríguez MD LABORATORY Final Result Performing Organization Address [facility] de Phone Number [facility] [address] [place] [address], [place] [phone] * (ABNORMAL) ACETAMINOPHEN (02/01/2025 6:59 AM CDT) Only the most recent of3 resultswithin the time period is included. ACETAMINOPHEN S/P/B <0.5(L) 10.0 - 30.0 MCG/ML 02/01/2025 7:33 AM CDT [facility] Comment: THERAPEUTIC: 10-30 TOXIC: >200 02/01/2025 6:59 AM CDT us Trung Rodríguez MD LABORATORY Final Result Performing Organization Address [facility] Co de Phone Number [facility] [address] [place] [address], * CORONAVIRUS (COVID-19) MOLECULAR (02/01/2025 1:34 AM CDT) Only the most recent of2 resultswithin the time period is included. CORONAVIRUS SARS COV 2 RNA NEGATIVE NEGATIVE 02/01/2025 1:55 AM CDT [facility] Comment: NEGATIVE RESULTS DO NOT RULE OUT COVID 19 AND SHOULD NOT BE USED THE SOLE BASIS FOR TREATMENT OR PATIENT MANAGEMENT DECISIONS, INCLUDING INFECTION CONTROL DECISIONS. NEGATIVE RESULTS SHOULD BE CONSIDERED IN THE CONTEXT OF A PATIENT'S RECENT EXPOSURES, HISTORY AND THE PRESENCE OF CLINICAL SIGNS AND SYMPTOMS CONSISTENT WITH COVID 19. THE ID NOW COVID-19 2.0 TEST HAS BEEN AUTHORIZED BY THE FDA UNDER EAU FOR USE BY AUTHORIZED LABORATORIES. PERFORMED BY NUCLEIC ACID AMPLIFICATION FOR MOLECULAR QUALITATIVE DETECTION OF SARS-COV-2. SPECIMEN TYPE NASAL 02/01/2025 1:37 AM CDT [facility] NASOPHARYNGEAL SWAB / Unknown 02/01/2025 1:34 AM CDT us Tarun Berry MD MICROBIOLOGY - GENERAL ORDERABL ES Final Result [facility] [address] [place] [address], [place] [phone] * (ABNORMAL) BETA-HYDROXYBUTYRATE (01/31/2025 9:27 PM CDT) BETA-HYDROXYBU TYRATE 1.2(H) 0.0 - 0.6 MMOL/L 01/31/2025 9:37 PM CDT [facility] 01/31/2025 9:27 PM CDT us Tarun Berry MD LABORATORY Final Result [facility] [address] [place] [address], [place] [phone] * LACTIC ACID - SINGLE (01/31/2025 9:27 PM CDT) LACTIC ACID VENOUS 1.3 0.4 - 2.0 MMOL/L 01/31/2025 9:58 PM CDT [facility] 01/31/2025 9:27 PM CDT Tarun Berry MD LABORATORY Final Result [facility] [address] [place] [address], * ECG 12 lead (01/31/2025 2:45 PM CDT) Only the most recent of2 resultswithin the time period is included. 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1990 Requested By: TARUN BERRY Order Number: [id number] Reading MD: Bandar Amin Measurements Intervals Desdemona Rate: 103 P: 58 KS: 141 QRS: 85 QRSD: 105 T: 10 QT: 373 QTc: 489 Interpretive Statements SINUS TACHYCARDIA NONSPECIFIC ST ELEVATION [0.05+ mV ST ELEVATION] ABNORMAL RHYTHM ECG Compared to ECG 01/24/2025 18:05:12 ST (T wave) deviation now present Procedure Note Bandar Amin MD - 01/31/2025 [facility] Test Date: 2025-01-31 Pat Name: LARS JACK Department: 85 Room: Gender: Male 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1990 Requested By: TARUN BERRY Order Number: [id number] Reading MD: Bandar Amin Measurements Intervals Desdemona Rate: 103 P: 58 KS: 141 QRS: 85 QRSD: 105 T: 10 QT: 373 QTc: 489 Interpretive Statements SINUS TACHYCARDIA NONSPECIFIC ST ELEVATION [0.05+ mV ST ELEVATION] ABNORMAL RHYTHM ECG Compared to ECG 01/24/2025 18:05:12 ST (T wave) deviation now present Taurn Berry MD ECG ORDERABLES Final Result [facility] ([facility] RAD * (ABNORMAL) URINALYSIS AUTO DIP (01/24/2025 6:14 PM CDT) COLOR (U) YELLOW YELLOW 01/24/2025 6:52 PM CDT [facility] TRANSPARENCY CLEAR CLEAR 01/24/2025 6:52 PM CDT [facility] SPECIFIC GRAVITY (U) 1.030(H) 1.010 - 1.025 01/24/2025 6:52 PM CDT [facility] U PH 6.0 5.0 - 8.5 01/24/2025 6:52 PM CDT [facility] LEUKOCYTES (U) NEGATIVE NEGATIVE 01/24/2025 6:52 PM CDT [facility] NITRITES NEGATIVE NEGATIVE 01/24/2025 6:52 PM CDT [facility] PROTEIN RANDOM (U) TRACE(A) NEGATIVE 01/24/2025 6:52 PM CDT [facility] GLUCOSE (U) NEGATIVE NEGATIVE 01/24/2025 6:52 PM CDT [facility] KETONES MG/DL (U) TRACE(A) NEGATIVE 01/24/2025 6:52 PM CDT [facility] UROBILINOGEN 0.2 0.2 - 1.0 EU/DL 01/24/2025 6:52 PM CDT [facility] BILIRUBIN (U) NEGATIVE NEGATIVE 01/24/2025 6:52 PM CDT [facility] BLOOD (U) NEGATIVE NEGATIVE 01/24/2025 6:52 PM CDT [facility] 01/24/2025 6:14 PM CDT Darell Lemon DO URINE ORDERABLES Final Result Performing Organization Address [facility] Co de Phone Number [facility] [address] [facility] [place] [address], * HEPATITIS C ANTIBODY (02/25/2021 3:18 PM CDT) HEPATITIS C AB NON-REACTI VE NON-REACT LUCI 02/25/2021 6:43 PM CDT [facility] Comment: ANTIBODIES TO HCV NOT DETECTED. DOES NOT EXCLUDE THE POSSIBILITY OF EXPOSURE TO HCV. 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
--- OUTSIDE RECORDS SUMMARY | 2025-02-09 07:20 | XMS_ITS | Clinical Summary ---
Author Organization [facility] Address [address] [place] [address] Care Team Providers Care Resident Advisor Name Role Phone Unavailable Primary Care Provider Unavailabl e Source Comments [facility],non-owned Affiliates and Associated Physician Practices is amultiple site organization consisting of ambulatory clinics and hospital sitesin [place], [place], [place]. This disclosure is being madepursuant to the Care Everywhere program and may not contain all information available regarding this patient. Last updated 18.[facility] Allergies No known active allergies Medications Be aware that medications may not be up to date on this document. Always verify current medications with the patient. No known medications Active Problems Problem Noted Date Diagnosed Date Malingering 11/15/2024 Unspecified mood (affective) disorder 11/14/2024 Resolved Problems Problem Noted Date Diagnosed Date Resolved Date Non-traumatic rhabdomyolysis 04/10/2022 11/15/2024 Encounters Date Type Department Care Team Description 11/14/2024 7:44 PM RESIDENTIAL CONCIERGE - 11/15/2024 1:02 AM RESIDENTIAL CONCIERGE Emergency ER at [address] [id number] Abdirashid Driscoll MD Suicidal ideation (Primary Dx) Discharge Disposition: Psychiatric Hospital or Unit 11/14/2024 Travel from Last 3 Months Social History Tobacco Use Types Packs/Day Years Used Date Smoking Tobacco: Every Day Cigarettes 1 20 Smokeless Tobacco: Never Tobacco Cessation:Ready to Q uit: No; Counseling Given: Yes Alcohol Use Standard Drinks/Week Comments Not Currently 0 (1 standard drink = 0.6 oz pur e alcohol) AUDIT-C Answer Date Recorded Q1: How often do you have a drink containing alcohol? Never 11/15/2024 Q2: How many drinks containi ng alcohol do you have on a typical day when you are drinking? Patient does not drink Q3: How often do you have si x or more drinks on one occasion? Never 11/15/2024 Overall Financial Resource Strain (CARDIA) Answe r Date Recorded How hard is it for you to pa y for the very basics like food, housing, medical care, and heating? Very hard 11/15/2024 PHQ-2 Answer Date Recorded Patient Health Questionnaire-2 Score 4 11/14/2024 [facility] - Occupational Stress Questionnaire Answer Date Recorded Do you feel stress - tense, restless, nervous, or anxious, or unable to sleep at night because your mind is troubled all the time - these days? Very much 11/15/2024 Hunger Vital Sign Answer Date Recorded Within the past 12 months, y ou worried that your food would run out before you got the money to buy more. Often true 11/15/19 25 Within the past 12 months, t he food you bought just didn't last and you didn't have money to get more. Often true 11/15/2024 PRAPARE - Transportation Answer Date Re corded In the past 12 months, has l ack of transportation kept you from medical appointments or from getting medications? Yes 12/2024 In the past 12 months, has l ack of transportation kept you from meetings, work, or from getting things needed for daily living? Yes 11/15/2024 Housing Stability Vital Sign Answer Ronn e Recorded In the last 12 months, was t here a time when you were not able to pay the mortgage or rent on time? Yes 11/15/2024 In the past 12 months, how m any times have you moved where you were living? 2 11/15/2024 At any time in the past 12 m [facility], were you homeless or living in a usp (including now)? Yes 11/15/2024 Sex and Gender Information Value Date Recorded Sex Assigned at Not on file Gender Identity Not on file Sexual Orientation Not on file Last Filed Vital Signs Vital Sign Reading Time Taken Comments Blood Pressure 130/79 11/16/2024 7:11 AM RESIDENTIAL CONCIERGE Pulse 76 11/16/2024 7:11 AM RESIDENTIAL CONCIERGE Temperature 36.8 C (98.2 F) 11/16/2024 7:11 AM RESIDENTIAL CONCIERGE Respiratory Rate 18 11/16/2024 7:11 AM RESIDENTIAL CONCIERGE Oxygen Saturation 98% 11/16/2024 7:11 AM RESIDENTIAL CONCIERGE Inhaled Oxygen Concentration - - Weight 70.4 kg (155 lb 3.2 oz) 11/15/2024 1:50 A M RESIDENTIAL CONCIERGE Height 170.2 cm (5' 7 ) 11/15/2024 1:50 AM RESIDENTIAL CONCIERGE Body Mass Index 24.31 11/15/2024 1:50 AM RESIDENTIAL CONCIERGE Plan of Treatment Health Maintenance Due Date Last Done Comments HIV SCREENING 2006 DTAP/TDAP/TD VACCINES (1 - Tdap) 2010 HEPATITIS B VACCINE (1 of 3 - 19+ 3-dose series) 2010 PNEUMOCOCCAL VACCINE (1 of 2 - PCV) 2010 COVID-19 VACCINE (3 - season) 2024 06/24/2021, 05/26/2021 INFLUENZA VACCINE (#1) 2024 08/21/2020, 2015 DEPRESSION SCREENING 11/14/2024 ZOSTER VACCINE (1 of 2) 2041 HEPATITIS C SCREENING Completed 04/11/2022 , 02/25/2021, 02/25/2021, Additional history exists HIB VACCINE Aged Out No longer eligi ble based on patient's age to complete this topic HPV VACCINE Aged Out No longer eligi ble based on patient's age to complete this topic MENINGOCOCCAL (Group B) VACCINE SHARED DECISION-MAKING Aged Out No longer eligible based on patient's age to complete this topic MENINGOCOCCAL GROUPS A/C/Y/W VACCINE Aged Out No longer eligible based on patient's age to complete this topic Procedures Procedure Name Priority Date/Time Associated Diagnosis Comments COMPREHENSIVE METABOLIC PANEL AM Draw 11/15/2024 6:10 AM RESIDENTIAL CONCIERGE CBC W AUTO DIFFERENTIAL AM Draw 11/15/2024 6:10 AM RESIDENTIAL CONCIERGE RESPIRATORY PANEL WITH SARS-COV-2 BY PCR STAT 11/14/2024 9:03 PM RESIDENTIAL CONCIERGE DIFFERENTIAL MANUAL STAT 11/14/2024 8 :02 PM RESIDENTIAL CONCIERGE TSH REFLEX FREE T4 STAT 11/14/2024 8: 02 PM RESIDENTIAL CONCIERGE SALICYLATE LEVEL BLOOD STAT 8:02 PM RESIDENTIAL CONCIERGE DRUG ABUSE URINE SCREEN 10 STAT 11/14/2024 8:02 PM RESIDENTIAL CONCIERGE COMPREHENSIVE METABOLIC PANEL STAT 11/14/2024 8:02 PM RESIDENTIAL CONCIERGE CBC W AUTO DIFFERENTIAL STAT 11/14/2024 8:02 PM RESIDENTIAL CONCIERGE ALCOHOL ETHYL BLOOD STAT 11/14/2024 8 :02 PM RESIDENTIAL CONCIERGE ACETAMINOPHEN LEVEL STAT 11/14/2024 8 :02 PM RESIDENTIAL CONCIERGE URINALYSIS REFLEX MICROSCOPIC REFLEX CULTURE STAT 11/14/2024 8:02 PM RESIDENTIAL CONCIERGE HEPATITIS SCREEN ACUTE AM Draw 2 4:13 AM CDT Dehydration from Last 3 Months or Most Recently Relevant to Health Maintenance Results * (ABNORMAL) CBC W AUTO DIFFERENTIAL (11/15/2024 6:10 AM RESIDENTIAL CONCIERGE) Only the most recent of2 resultswithin the time period is included. WBC 10.6 4.0 - 10.7 x10E9/L 11/15/2024 6:15 AM [facility] RBC Count 4.29(L) 4.30 - 5.80 x10E12/L 11/15/2024 6:15 AM [facility] Hemoglobin 12.8(L) 13.3 - 17.5 g/dL 11/15/2024 6:15 AM [facility] Hematocrit 39.4 38.7 - 51.1 % 11/15/2024 6:15 AM [facility] MCV 91.8 80.0 - 98.0 fL 11/15/2024 6:15 AM [facility] MCH 29.8 26.7 - 33.6 pg 11/15/2024 6:15 AM [facility] MCHC 32.5 31.7 - 36.3 g/dL 11/15/2024 6:15 AM [facility] RDW-CV 12.3 11.3 - 14.8 % 11/15/2024 6:15 AM [facility] Platelet Count 274 150 - 420 x10E9/L 11/15/2024 6:15 AM [facility] MPV 10.0 7.8 - 11.4 fL 11/15/2024 6:15 AM [facility] Neutrophil % 57.4 41.0 - 74.0 % 11/15/2024 6:15 AM [facility] Lymphocyte % 28.9 17.0 - 47.0 % 11/15/2024 6:15 AM [facility] Monocyte % 7.6 3.0 - 11.0 % 11/15/2024 6:15 AM [facility] Eosinophil % 5.2 0.0 - 7.0 % 11/15/2024 6:15 AM [facility] Basophil % 0.7 0.0 - 1.6 % 11/15/2024 6:15 AM [facility] Immature Granulocytes % 0.2 0.0 - 1.0 % 11/15/2024 6:15 AM [facility] Neutrophil Absolute 6.09 1.60 - 7.50 x10E9/L 11/15/2024 6:15 AM [facility] Lymphocyte Absolute 3.06 1.00 - 4.40 x10E9/L 11/15/2024 6:15 AM [facility] Monocyte Absolute 0.81 0.15 - 1.00 x10E9/L 11/15/2024 6:15 AM [facility] Eosinophil Absolute 0.55 0.00 - 0.60 x10E9/L 11/15/2024 6:15 AM [facility] Basophil Absolute 0.07 0.00 - 0.13 x10E9/L 11/15/2024 6:15 AM [facility] Blood BLOOD SPECIMEN / Unknown Lab Venipuncture / Unknown 11/15/2024 6:10 AM RESIDENTIAL CONCIERGE 11/15/2024 6:13 AM [facility] Violet Pace MD LAB - HEMATOLOGY ORD ERABLES [facility] [address] * (ABNORMAL) COMPREHENSIVE METABOLIC PANEL (11/15/2024 6:10 AM [facility]) Only the most recent of2 resultswithin the time period is included. Glucose 107 70 - 125 mg/dL 11/15/2024 6:38 AM [facility] Sodium 141 136 - 145 mmol/L 11/15/2024 6:38 AM [facility] Potassium 4.0 3.4 - 5.1 mmol/L 11/15/2024 6:38 AM [facility] Chloride 110(H) 98 - 107 mmol/L 11/15/2024 6:38 AM [facility] CO2 27 22 - 29 mmol/L 11/15/2024 6:38 AM [facility] Calcium 8.66 8.4 - 10.2 mg/dL 11/15/2024 6:38 AM [facility] Anion Gap 4(L) 6 - 16 mmol/L 11/15/2024 6:38 AM [facility] BUN 7.8(L) 8.4 - 25.7 mg/dL 11/15/2024 6:38 AM [facility] Creatinine 0.92 0.72 - 1.25 mg/dL 11/15/2024 6:38 AM [facility] Alkaline Phosphatase 73 40 - 150 U/L 11/15/2024 6:38 AM [facility] ALT 23 <=55 U/L 11/15/2024 6:38 AM [facility] AST 12 5 - 34 U/L 11/15/2024 6:38 AM [facility] Protein Total 5.9(L) 6.4 - 8.3 gm/dL 11/15/2024 6:38 AM [facility] Albumin 3.2(L) 3.4 - 4.8 gm/dL 11/15/2024 6:38 AM [facility] Globulin Total 2.7 2.6 - 4.0 gm/dL 11/15/2024 6:38 AM [facility] Albumin/Globulin Ratio 1.2 0.9 - 1.6 11/15/2024 6:38 AM [facility] Bilirubin Total 0.3 0.2 - 1.2 mg/dL 11/15/2024 6:38 AM [facility] eGFR >90 >90 mL/min/1.7 3m2 11/15/2024 6:38 AM [facility] Comment:The GFR result was c alculated using the updated CKD-EPI Creatinine Equation (2020). Blood BLOOD SPECIMEN / Unknown Lab Venipuncture / Unknown 11/15/2024 6:10 AM RESIDENTIAL CONCIERGE 11/15/2024 6:13 AM RESIDENTIAL CONCIERGE Violet Pace MD LAB - CHEMISTRY ORI Howell Organization Address City/State/[facility] Co de Phone Number [facility] [address] [place] [address] * RESPIRATORY PANEL WITH SARS-COV-2 BY PCR (11/14/2024 9:03 PM RESIDENTIAL CONCIERGE) Pathologist [facility] Adenovirus PCR Not detected Not detected 11/14/2024 9:55 PM RESIDENTIAL CON[facility]GE [facility] Coronavirus 229E PCR Not detected Not detected 11/14/2024 9:55 PM RESIDENTIAL CONCIERGE [facility] Coronavirus HKU1 PCR Not detected Not detected 11/14/2024 9:55 PM RESIDENTIAL CONCIERGE [facility] Coronavirus NL63 PCR Not detected Not detected 11/14/2024 9:55 PM RESIDENTIAL CONCIERGE [facility] Coronavirus OC43 PCR Not detected Not detected 11/14/2024 9:55 PM RESIDENTIAL CONCIERGE [facility] COVID-19 PCR Not detected Not detected 11/14/2024 9:55 PM RESIDENTIAL CONCIERGE [facility] Human Metapneumovirus PCR Not detected Not detected 11/14/2024 9:55 PM RESIDENTIAL CONCIERGE [facility] Human Rhinovirus/Enterov irus PCR Not detected Not detected 11/14/2024 9:55 PM RESIDENTIAL CONCIERGE [facility] Influenza A PCR Not detected Not detected 11/14/2024 9:55 PM RESIDENTIAL CONCIERGE [facility] Influenza B PCR Not detected Not detected 11/14/2024 9:55 PM RESIDENTIAL CONCIERGE [facility] Parainfluenza Virus 1 PCR Not detected Not detected 11/14/2024 9:55 PM RESIDENTIAL CONCIERGE [facility] Parainfluenza Virus 2 PCR Not detected Not detected 11/14/2024 9:55 PM RESIDENTIAL CONCIERGE [facility] Parainfluenza Virus 3 PCR Not detected Not detected 11/14/2024 9:55 PM RESIDENTIAL CONCIERGE [facility] Parainfluenza Virus 4 PCR Not detected Not detected 11/14/2024 9:55 PM RESIDENTIAL CONCIERGE [facility] Respiratory Syncytial Virus PCR Not detected Not detected 11/14/2024 9:55 PM RESIDENTIAL CONCIERGE [facility] Bordetella parapertussis PCR Not detected Not detected 11/14/2024 9:55 PM RESIDENTIAL CONCIERGE [facility] Bordetella pertussis PCR Not detected Not detected 11/14/2024 9:55 PM RESIDENTIAL CONCIERGE [facility] Chlamydia pneumoniae PCR Not detected Not detected 11/14/2024 9:55 PM RESIDENTIAL CONCIERGE [facility] Mycoplasma pneumoniae PCR Not detected Not detected 11/14/2024 9:55 PM RESIDENTIAL CONCIERGE [facility] Microbiology SPECIMEN FROM NASOPHARYNGEAL STRUCTURE / Unknown Collection / Unknown 11/14/2024 9:03 PM RESIDENTIAL CONCIERGE 11/14/2024 9:06 PM RESIDENTIAL CONCIERGE Narrative [facility] - 11/14/2024 9:55 PM RESIDENTIAL CONCIERGE This nucleic amplification assay has received FDA authorization via the [employer]. Abdirashid Driscoll MD LAB - MICROBIOLOGY ORDERABLES [facility] [address] [place] [address], [facility] * (ABNORMAL) DRUG ABUSE URINE SCREEN 10 (11/14/2024 8:02 PM RESIDENTIAL CONCIERGE) Pathologist [facility] Amphetamines Screen Urine Negative Negative 11/14/2024 8:18 PM RESIDENTIAL CONCIERGE [facility] Barbiturates Screen Urine Negative Negative 11/14/2024 8:18 PM RESIDENTIAL CONCIERGE [facility] Benzodiazepines Screen Urine Negative Negative 11/14/2024 8:18 PM RESIDENTIAL CONCIERGE [facility] Cannabinoids Screen Urine Positive(A) Negative 11/14/2024 8:18 PM RESIDENTIAL CONCIERGE [facility] Cocaine Screen Urine Negative Negative 11/14/2024 8:18 PM RESIDENTIAL CONCIERGE [facility] Methadone Screen Urine Negative Negative 11/14/2024 8:18 PM RESIDENTIAL CONCIERGE [facility] Opiate Screen Urine Negative Negative 11/14/2024 8:18 PM RESIDENTIAL CONCIERGE [facility] Phencyclidine Screen Urine Negative Negative 11/14/2024 8:18 PM RESIDENTIAL CONCIERGE [facility] Tricyclics Screen Urine Negative Negative 11/14/2024 8:18 PM RESIDENTIAL CONCIERGE [facility] Methamphetamine Screen Urine Negative Negative 11/14/2024 8:18 PM RESIDENTIAL CONCIERGE [facility] Buprenorphine Screen Urine Negative Negative 11/14/2024 8:18 PM RESIDENTIAL CONCIERGE [facility] Oxycodone Screen Urine Negative Negative 11/14/2024 8:18 PM RESIDENTIAL CONCIERGE [facility] Urine URINE / Unknown 11/14/2024 8 :02 PM RESIDENTIAL CONCIERGE 11/14/2024 8:02 PM RESIDENTIAL CONCIERGE Narrative [facility] - 11/14/2024 8:18 PM RESIDENTIAL CONCIERGE This is a presumptive/unconfirmed test for medical treatment purposes only. Clinical consideration and professional judgment should be applied when using presumptive results. If confirmatory testing, such as gas chromatography-mass spectrometry (GC/MS), of any positive results of this test is required, please notify the laboratory within 7 days of collection. This test is intended only for monitoring or management of patients. It is not intended for use in job-related and/or legal-related purposes. The cutoff value for each analyte is: Barbiturates.....200 ng/mL Benzodiazepines......150 ng/mL Cocaine..........150 ng/mL Opiates..............100 ng/mL Phencyclidine.....25 ng/mL Tricyclics...........300 ng/mL Cannabinoid.......50 ng/mL Amphetamines.........500 ng/mL Methadone........200 ng/mL Methamphetamines.....500 ng/mL Buprenorphine.....10 ng/mL Oxycodone............100 ng/mL Abdirashid Driscoll MD LAB - URINE CHEMIS TRY ORDERABLES Performing Organization Address City/State/[facility] Co de Phone Number [facility] [address] * URINALYSIS REFLEX MICROSCOPIC REFLEX CULTURE (11/14/2024 8:02 PM RESIDENTIAL CONCIERGE) Color UA Yellow Straw, Yellow 11/14/2024 8:11 PM RESIDENTIAL CONCIERGE [facility] Clarity UA Clear Clear 11/14/2024 8:11 PM RESIDENTIAL CONCIERGE [facility] Glucose UA Negative Negative 11/14/2024 8:11 PM RESIDENTIAL CONCIERGE [facility] Bilirubin UA Negative Negative 11/14/2024 8:11 PM RESIDENTIAL CONCIERGE [facility] Ketone UA Negative Negative 11/14/2024 8:11 PM RESIDENTIAL CONCIERGE [facility] Specific [place] UA 1.011 1.005 - 1.030 11/14/2024 8:11 PM RESIDENTIAL CONCIER[facility] Blood UA Negative Negative 11/14/2024 8:11 PM [facility]IDENTIAL CONCI[facility] pH UA 6.0 5.0 - 8.0 pH 11/14/2024 8:11 PM [facility]IDENTIAL CON[facility] Protein UA Negative Negative 11/14/2024 8:11 PM RESIDENTIAL CONCIERGE [facility] Urobilinogen UA Negative Negative, >8.0 mg/dL 11/14/2024 8:11 PM RESIDENTIAL CONCIERGE [facility] Nitrite UA Negative Negative 11/14/2024 8:11 PM RESIDENTIAL CONCIERGE [facility] Leukocyte UA Negative Negative 11/14/2024 8:11 PM [facility]IDENTIAL CONCI[facility] Urine Microscopy Urine microscopy not indicated 11/14/2024 8:11 PM [facility]IDENTIAL CON[facility] Reflex Status Culture not indicated 11/14/2024 8:11 PM RESIDENTIAL CONCIERGE [facility] Urine URINE SPECIMEN OBTAINED BY CLEAN CATCH PROCEDURE / Unknown 11/14/2024 8:02 PM RESIDENTIAL CONCIERGE 11/14/2024 8:02 PM RESIDENTIAL CONCIERGE Narrative [facility] - 11/14/2024 8:11 PM RESIDENTIAL CONCIERGE Abdirashid Driscoll MD LAB - URINALYSIS O RDERABLES Performing Organization Address [facility] Co de Phone Number [facility] [address] * TSH REFLEX FREE T4 (11/14/2024 8:02 PM RESIDENTIAL CONCIERGE) Pathologist [facility] TSH 2.2952 0.35 - 4.94 uIU/mL 11/14/2024 8:43 PM RESIDENTIAL CONCIERGE [facility] Comment:TSH Normal, Reflex F ree T4 Not Performed. Blood BLOOD SPECIMEN / Unknown 11/14/2024 8:02 PM RESIDENTIAL CONCIERGE 11/14/2024 8:02 PM RESIDENTIAL CONCIERGE Abdirashid Driscoll MD LAB - CHEMISTRY OR DERABLES Performing Organization Address [facility] Co de Phone Number [facility] [address] * (ABNORMAL) DIFFERENTIAL MANUAL (11/14/2024 8:02 PM RESIDENTIAL CONCIERGE) Neutrophil % 68 41 - 74 % 11/14/2024 8:41 PM RESIDENTIAL CONCIERGE [facility] Lymphocyte % 24 17 - 47 % 11/14/2024 8:41 PM RESIDENTIAL CONCIERGE [facility] Monocyte % 7 3 - 11 % 11/14/2024 8:41 PM RESIDENTIAL CONCIERGE [facility] Eosinophil % 1 0 - 7 % 11/14/2024 8:41 PM RESIDENTIAL CONCIERGE [facility] Neutrophil Absolute 13.26(H) 1.60 - 7.50 x10E9/L 11/14/2024 8:41 PM RESIDENTIAL CONCIERGE [facility] Lymphocyte Absolute 4.68(H) 1.00 - 4.40 x10E9/L 11/14/2024 8:41 PM RESIDENTIAL CONCIERGE [facility] Monocyte Absolute 1.37(H) 0.15 - 1.00 x10E9/L 11/14/2024 8:41 PM RESIDENTIAL CONCIERGE [facility] Eosinophil Absolute 0.20 0.00 - 0.60 x10E9/L 11/14/2024 8:41 PM RESIDENTIAL CONCIERGE [facility] RBC Morphology NORMAL 11/14/2024 8:41 PM RESIDENTIAL CONCIERGE [facility] Blood BLOOD SPECIMEN / Unknown 11/14/2024 8:02 PM RESIDENTIAL CONCIERGE 11/14/2024 8:02 PM RESIDENTIAL CONCIERGE Abdirashid Driscoll MD LAB - HEMATOLOGY O RDERABLES Performing Organization Address [facility] Co de Phone Number [facility] [address] * ALCOHOL ETHYL BLOOD (11/14/2024 8:02 PM RESIDENTIAL CONCIERGE) Pathologist [facility] Ethanol <10.0 <10 mg/dL 11/14/2024 8:23 PM RESIDENTIAL CONCIERGE [facility] Blood BLOOD SPECIMEN / Unknown 11/14/2024 8:02 PM RESIDENTIAL CONCIERGE 11/14/2024 8:02 PM RESIDENTIAL CONCIERGE Narrative [facility] - 11/14/2024 8:23 PM RESIDENTIAL CONCIERGE For Medical Use Only Abdirashid Driscoll MD LAB - CHEMISTRY OR DERABLES Performing Organization Address [facility] Co de Phone Number [facility] [address] * (ABNORMAL) SALICYLATE LEVEL BLOOD (11/14/2024 8:02 PM RESIDENTIAL CONCIERGE) Salicylate <5.0(L) 15.0 - 30.0 mg/dL 11/14/2024 8:22 PM RESIDENTIAL CONCIERGE [facility] Blood BLOOD SPECIMEN / Unknown 11/14/2024 8:02 PM RESIDENTIAL CONCIERGE 11/14/2024 8:02 PM RESIDENTIAL CONCIERGE Abdirashid Driscoll MD LAB - CHEMISTRY OR DERABLES Performing Organization Address [facility] de Phone Number [facility] [address] * ACETAMINOPHEN LEVEL (11/14/2024 8:02 PM RESIDENTIAL CONCIERGE) Pathologist [facility] Acetaminophen <5.0 <=30.0 ug/mL 11/14/2024 8:22 PM RESIDENTIAL CONCIERGE [facility] Blood BLOOD SPECIMEN / Unknown 11/14/2024 8:02 PM RESIDENTIAL CONCIERGE 11/14/2024 8:02 PM RESIDENTIAL CONCIERGE Narrative [facility] - 11/14/2024 8:22 PM RESIDENTIAL CONCIERGE Significantly reduced Acetaminophen recovery has been demonstrated in situations where testing has been performed immediately after introduction of N- acetylcysteine (NAC). Abdirashid Driscoll MD LAB - CHEMISTRY OR DERABLES Performing Organization Address [facility] de Phone Number [facility] [address] * HEPATITIS SCREEN ACUTE (04/11/2022 4:13 AM CDT) Pathologist [facility] HAV Antibody IgM Non Reactive Non Reactive 04/11/2022 6:55 PM CDT [facility] HBsAg Non Reactive Non Reactive 04/11/2022 6:55 PM CDT [facility] HBc Antibody IgM Non Reactive Non Reactive 04/11/2022 6:55 PM CDT [facility] HCV Antibody Screen Non Reactive Non Reactive 04/11/2022 6:55 PM CDT [facility] Blood BLOOD SPECIMEN / Unknown Lab Venipuncture / Unknown 04/11/2022 4:13 AM CDT 04/11/2022 4:22 AM CDT Narrative [facility] - 04/11/2022 6:55 PM CDT Non Reactive - Antibodies to Hepatitis C virus (HCV) were not detected, result does not exclude early acute HCV infection. Sarai Bernardo [employer] LAB - CHEMISTRY ORDERABLES Performing Organization Address City/State/[facility] Co de Phone Number [facility] [address] [place], [place] [id number] from Last 3 Months or Most Recently Relevant to Health Maintenance Advance Directives * Full Code (Latest Code Status on File) Date Activated Date Inactivated Comments 11/15/2024 1:43 AM 11/16/2024 10:08 AM * Full Code Date Activated Date Inactivated Comments 04/10/2022 3:36 PM 04/11/2022 11:49 AM * Full Code Date Activated Date Inactivated Comments 04/10/2022 3:34 PM 04/10/2022 3:36 PM
--- OUTSIDE RECORDS SUMMARY | 2025-02-09 07:20 | XMS_ITS | Continuity of Care Document ---
Author Organization [facility] Address [address] [place] [address] [address] [place] [address] Phone Care Team Providers Care Web Sizer Name Role Phone Shahnaz Hightower Unavailable Unavailable Advance Directives Directive Yes / No Effective Date File Name No Information Encounters Encounter Description Practice Location Reason(s) For Visit Diagnoses Date Provider Providers Copied on Encounter [facility], [address] [place] [address] [address], [place], [place], [id number], [place] tel:[phone] [facility] No Information Nov-0 6-200 1 Katja Christie. [address] , [address], [place], [address], [place]. tel:[phone] Family History Family Member Type Diagnosis Age At Onset No Information Payers Payer name Insurance type Covered constitution party ID Authoriza tion(s) BC[place] Commercial [place] [id number] Social History Type Description Quantity Date Captured Comments Sex Male Smoking Status No Information Chief Complaint And Reason For Visit No Information Reason For Referral Reason For Referral No Information History Of Present Illness Encounter Date Complaint History Of Prese nt Illness No Information Functional Status Date Functional Assessmen t No Information Instructions Date Instruction Additional Infor mation No Information Assessments Type Assessment Date No Information Patient Care Teams Name Effective Dates (start - stop) Status Members No Information
--- NOTE | 2025-02-09 07:30 | PC.NURSE ---
safety breakfast tray ordered
[2025-02-09 07:50] VITALS: BP 115/76; PULSE 79; RESP 18; O2SAT 100
--- NOTE | 2025-02-09 12:01 | PC.NURSE ---
Pt denied by [facility] and [facility].
--- NOTE | 2025-02-09 12:03 | PC.NURSE ---
Chart faxed to [facility].
--- NOTE | 2025-02-09 14:43 | PC.NURSE ---
Pt denied from [facility]. PT's chart faxed to [facility] and [facility].
--- NOTE | 2025-02-09 17:48 | PC.NURSE ---
Pt was denied by [facility]. Pt chart faxed to [facility] at [phone].
--- NOTE | 2025-02-09 19:32 | PC.NURSE ---
Pt chart faxed to [facility]
[2025-02-09 19:52] VITALS: BP 126/82; PULSE 87; RESP 18; O2SAT 99
[2025-02-09] MEDS: QUEtiapine FUMARATE 25 MG TABLET 50 MG PO (21:32)
--- NOTE | 2025-02-10 05:59 | PC.NURSE ---
Rn spoke with Lazara from [facility]. aAll her questions answered at this time and she states she will fax over everything and give us a call back on an update when pt possibly gets accepted.
[2025-02-10 06:36] VITALS: BP 118/73; PULSE 78; RESP 18; O2SAT 100
--- NOTE | 2025-02-10 06:39 | PC.NURSE ---
Rn just got off phone with Lazara from [facility]. She states pt was accepted to [facility] in [facility]. Rn waiting to hear from facility to give report at this time.
--- NOTE | 2025-02-10 07:45 | PC.NURSE ---
This RN spoke with Leonarda GONZALES at [facility] who states pt has a bed at [facility] in [place] and will go to [phone] number for report is [phone], accepting physician is
[2025-02-10 07:47] VITALS: BP 109/73; PULSE 56; RESP 14; TEMP 36.5; O2SAT 100
--- NOTE | 2025-02-10 08:00 | PC.NURSE ---
This RN called report to [facility] at 0750 and spoke with Alyssa GONZALES, all questions answered
[2025-02-10 08:36] VITALS: BP 109/73; PULSE 56; RESP 14; TEMP 36.5; O2SAT 100
== END 2025-02-10 08:41 ==
LOC: ANHED 07:18
PROVIDERS: Emergency Provider Emergency Medicine
DX: F15.10 Other stimulant abuse, uncomplicated (principal); R45.850 Homicidal ideations; Z11.52 Encounter for screening for COVID-19; F31.9 Bipolar disorder, unspecified; F17.210 Nicotine dependence, cigarettes, uncomplicated; Z86.14 Personal history of Methicillin resistant Staphylococcus aureus infection
CPT/HCPCS: 36415; 80053; 80307; 81003; 82077; 84443; 85025; 87637; 99285; A9270

== ENCOUNTER 2025-04-02 21:21 | Emergency (ER) | payer SELFPAY ==
[2025-04-02 21:22] VITALS: BP 155/83; PULSE 78; RESP 18; TEMP 36.6; O2SAT 100
--- OUTSIDE RECORDS SUMMARY | 2025-04-02 21:22 | XMS_ITS | Clinical Summary ---
Author Organization [facility] Address [address] [place] [address] Care Team Providers Care Dehydrating Press Operator Name Role Phone Unavailable Primary Care Provider Unavailabl e Source Comments [facility],non-owned Affiliates and Associated Physician Practices is amultiple site organization consisting of ambulatory clinics and hospital sitesin [place], [place], [place] and [place]. This disclosure is being madepursuant to the Care Everywhere program and may not contain all information available regarding this patient. Last updated 18.[facility] Allergies No known active allergies Medications * This document contains information received from the source organization and may not represent a complete record from that organization. * Be aware that medications may not be up to date on this document. Alwaysverify current medications with the patient. nicotine polacrilex (Nicorette) 2 MG gumIndications: Nicotine Dependence Take 1 (one) Each by mouth as needed for Smoking Cessation - Gum should be slowly chewed until a peppery taste emerges, then parked between cheek and gum to facilitate nicotine absorption. - Avoid eating or drinking for 15 minutes before and during chewing gum. Reasons: Nicotine Addiction 50 Each Active Active Problems Problem Noted Date Diagnosed Date Cannabis use disorder, severe, dependence 2024 Laceration of left radial artery 02/11/2025 Tobacco use disorder 02/11/2025 Methamphetamine use disorder, severe 02/10/2025 Malingering 11/15/2024 Unspecified mood (affective) disorder 11/14/2024 Cluster B personality disorder 02/14/2024 Abnormal TSH 02/14/2024 Bereavement 02/14/2024 Laceration of left wrist 09/21/2021 Laceration of right wrist 09/21/2021 Traumatic hemorrhage 09/21/2021 Traumatic hemorrhagic shock 09/21/2021 Puncture wound of right elbow 09/21/2021 Cellulitis of neck 02/25/2021 Facial cellulitis 08/17/2020 Resolved Problems Problem Noted Date Diagnosed Date Resolved Date Dehydration 02/14/2024 02/25/2025 Non-traumatic rhabdomyolysis 04/10/2022 11/15/2024 Encounters * This document contains information received from the source organization and may not represent a complete record from that organization. Date Type Department Care Team Description 02/10/2025 Travel from Last 3 Months Social History [...] you have a drink containing alcohol? Never 02/10/2025 Q2: How many drinks containi ng alcohol do you have on a typical day when you are drinking? Patient does not drink Q3: How often do you have si x or more drinks on one occasion? Never 02/10/2025 Overall Financial Resource Strain (CARDIA) Answe r Date Recorded How hard is it for you to pa y for the very basics like food, housing, medical care, and heating? Hard 02/10/2025 PHQ-2 Answer Date Recorded Patient Health Questionnaire-2 Score 4 11/14/2024 [facility] of Occupat ional Health - Occupational Stress Questionnaire Answer Date Recorded Do you feel stress - tense, restless, nervous, or anxious, or unable to sleep at night because your mind is troubled all the time - these days? To some extent 02/10/2025 Hunger Vital Sign Answer Date Recorded Within the past 12 months, y ou worried that your food would run out before you got the money to buy more. Sometimes true Within the past 12 months, t he food you bought just didn't last and you didn't have money to get more. Sometimes true PRAPARE - Transportation Answer Date Re corded In the past 12 months, has l ack of transportation kept you from medical appointments or from getting medications? Yes 01/14 In the past 12 months, has l ack of transportation kept you from meetings, work, or from getting things needed for daily living? Yes 02/10/2025 Housing Stability Vital Sign Answer Ronn e Recorded In the last 12 months, was t here a time when you were not able to pay the mortgage or rent on time? No 02/10/2025 In the past 12 months, how m any times have you moved where you were living? 7 02/10/2025 At any time in the past 12 m [facility], were you homeless or living in a retirement (including now)? 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 Gender Identity Not on file Sexual Orientation Not on file Last Filed Vital Signs Vital Sign Reading Time Taken Comments Blood Pressure 108/65 02/13/2025 7:22 AM CDT Pulse 64 02/13/2025 7:22 AM CDT Temperature 36.5 C (97.7 F) 02/13/2025 7:22 AM CDT Respiratory Rate 18 02/13/2025 7:22 AM CDT Oxygen Saturation 98% 02/13/2025 7:22 AM CDT Inhaled Oxygen Concentration - - Weight 67.6 kg (149 lb) 02/10/2025 10:07 AM CDT Height 170.2 cm (5' 7 ) 02/10/2025 10:07 AM CDT Body Mass Index 23.34 02/10/2025 10:07 AM CDT Plan of Treatment Health Maintenance Due Date Last Done Comments HIV SCREENING 2006 DTAP/TDAP/TD VACCINES (1 - Tdap) 2010 HEPATITIS B VACCINE (1 of 3 - 19+ 3-dose series) 2010 PNEUMOCOCCAL VACCINE (1 of 2 - PCV) 2010 COVID-19 VACCINE (3 - season) 2024 06/24/2021, 05/26/2021 DEPRESSION SCREENING 11/14/2024 INFLUENZA VACCINE (Season Ended) 2025 08/21/2020, 08/10/2016 ZOSTER VACCINE (1 of 2) 2041 HEPATITIS [...] Procedure Name Priority Date/Time Associated Diagnosis Comments HEPATITIS SCREEN ACUTE AM Draw 04/11/2022 4:13 AM CDT Dehydration from Last 3 Months or Most Recently Relevant to Health Maintenance Results * HEPATITIS SCREEN ACUTE (04/11/2022 4:13 AM CDT) HAV Antibody IgM Non Reactive Non Reactive 04/11/2022 6:55 PM CDT [facility] HBsAg Non Reactive Non Reactive 04/11/2022 6:55 PM CD[address] [facility] HBc Antibody IgM Non Reactive Non Reactive 04/11/2022 6:55 PM CDT [facility] HCV Antibody Screen Non Reactive Non Reactive 04/11/2022 6:55 PM CDT [facility] Blood BLOOD SPECIMEN / Unknown Lab Venipuncture / Unknown 04/11/2022 4:13 AM CDT 04/11/2022 4:22 AM CDT Narrative [facility] - 04/11/2022 6:55 PM CDT Non Reactive - Antibodies to Hepatitis C virus (HCV) were not detected, result does not exclude early acute HCV infection. us Sarai Bernardo WELFARE CENTRE MANAGER-MANAGER OF TRAINING LAB - CHEMISTRY ORDERABL ES Final Result [facility] [address] [place], [place] [id number] from Last 3 Months or Most Recently Relevant to Health Maintenance Advance Directives * Full Code (Latest Code Status on File) Date Activated Date Inactivated Comments 02/10/2025 10:27 AM 02/13/2025 11:21 AM * Full Code Date Activated Date Inactivated Comments 11/15/2024 1:43 AM 11/16/2024 10:08 AM * Full Code Date Activated Date Inactivated Comments 04/10/2022 3:36 PM 04/11/2022 11:49 AM * Full Code Date Activated Date Inactivated Comments 04/10/2022 3:34 PM 04/10/2022 3:36 PM
--- OUTSIDE RECORDS SUMMARY | 2025-04-02 21:22 | XMS_ITS | Continuity of Care Document ---
Author Organization [facility] Address [address] [place] [address] [address] [place] [address] Phone Care Team Providers Care Toll Collector Name Role Phone Shahnaz Hightower Unavailable Unavailable Advance Directives Directive Yes / No Effective Date File Name No Information Encounters Encounter Description Practice Location Reason(s) For Visit Diagnoses Date Provider Providers Copied on Encounter [facility], [address] [place] [address] [address], [place], [place], [id number], [place] tel:[phone] [facility] [place] No Information Nov0 6-200 1 Katja Christie. [address] , [address], [place], [address], [place]. tel:[phone] Family History Family Member Type Diagnosis Age At Onset No Information Payers Payer name Insurance type Covered alliance party ID Authoriza tion(s) BC[place] Commercial BL [id number] Social History Type Description Quantity Date Captured [...]
--- OUTSIDE RECORDS SUMMARY | 2025-04-02 21:22 | XMS_ITS | Continuity of Care Document ---
Author Organization [facility] Address [address] [place] [address] [place] [address] Phone Care Team Providers Care Loss Prevention Analyst Name Role Phone Danial Hernandez MD Unavailable Unavailable Advance Directives Directive Yes / No Effective Date File Name No Information Encounters Encounter Description Practice Location Reason(s) For Visit Diagnoses Date Provider Providers Copied on Encounter [facility], [address] [place], [id number], [place] tel:[phone] [facility] No Information David Barrow. [address] [place], [place], [id number], [place]. tel:[phone] Family History Family Member Type Diagnosis Age At Onset No Information Payers Payer name Insurance type Covered alliance party ID Authoriza tion(s) No Information Social [...]
--- OUTSIDE RECORDS SUMMARY | 2025-04-02 21:22 | XMS_ITS | Continuity of Care Document ---
Author Organization [facility] Address [address] [place] [address] Phone Care Team Providers Care Audiometrist Name Role Phone Yamila Damian LCSW Unavailable Unavailab le Advance Directives Directive Yes / No Effective Date File Name No Information Encounters Encounter Description Practice Location Reason(s) For Visit Diagnoses Date Provider Providers Copied on Encounter [facility], [address] [place] [address], [address], tel:[phone] [facility] Candido Driscoll. [address] [place] [address], [id number], [place]. tel:[phone] [facility], [address] [place] [address], [address], [place] tel:[phone] [facility] Candido Driscoll. [address] [place] [address], [id number], [place]. tel:[phone] As per patient privacy policy some of the clinical information may not be visible. Family History Family Member Type Diagnosis Age At Onset No Information Payers Payer name Insurance type Covered green party ID Authoriza tion(s) No Information Social [...]
--- OUTSIDE RECORDS SUMMARY | 2025-04-02 21:22 | XMS_ITS | Patient Health Record ---
Author Organization [facility] Address [address] [place] [address] Care Team Providers Care Platen Press Operator Name Role Phone Letha Plunkett Primary Care Provider [phone] Reason For Referral No Information Medications Medication SIG (Take, Route, Fr equency, Duration) Notes Start Date End Date Status SEROquel 50 MG 1 tablet q AM Orally Once a day for 30 day(s) 07/13/2018 Active SEROquel 100 MG 1 tablet qHS Orally Once a day for 30 day(s) 07/13/2018 Active Immunizations Vaccine Route Administration Date Status Comme nts PPD ID Intradermal 09/13/2017 Administered Social History Tobacco Use: Social History Observation Description Date Details (start date - stop date) Current Smoker NA - NA Tobacco Use/Smoking Question Answer Notes Are you a current smoker How often do you smoke cigarettes? every day How many cigarettes a day do you smoke? 6-10 How soon after you wake up d o you smoke your first cigarette? 6-30 minutes Are you interested in quitting? Thinking about q uitting Additional Findings: Tobacco User Light cigarett e smoker ((1-9 cigs/day) Alcohol Screen (Audit-C) Question Answer Notes Did you have a drink containing alcohol in the p ast year? No Points 0 Interpretation Negative Sexual History Question Answer Notes Had sex in the past 12 months (vaginal, oral, or anal)? Yes with Women only Use protection? No Prevention strategies discussed: Other Have you ever had a Sexually transmitted disease ? No Problems Problem Type SNOMED Code ICD Code Onset Dates Problem Status W/U Status Risk Notes Problem 503066508 Tobacco abuse (Z72.0) Active confirmed Problem 20617983061378694 History of methamphetamine abuse (Z87.898) Active confirmed Problem 74495379 Attention defici t hyperactivity disorder (ADHD), combined type (F90.2) Active confirmed Problem 93117879 Manic bipolar I disorder (F31.10) Active confirmed Plan Of Treatment No Information Insurance Providers Payer Name Payer Address Payer Phone Subscriber Number Group Number Insured Name Patient Relationship to Insured Coverage Start Date Coverage End Date [place] [employer] [facility] [address] [address] [place] [phone] [id number] Lars Jack Self - patient is the insured Medical (General) History Medical History History ICD Code ADHD Manic Depression Bipolar Tobacco abuse History of methamphetamine abuse Manic bipolar I disorder Attention deficit hyperactivity disorder (ADHD), combined type Attention deficit hyperactivity disorder (ADHD), combined type Surgical History Surgery Date(Month/Year) rt femur fracture
[2025-04-02 21:37] LABS: Basophils Absolute Auto 0.1 K/mm3 (0.0-0.1); Basophils Percent Auto 0.5 % (0.2-1.2); Eosinophils Absolute Auto 0.2 K/mm3 (0-0.3); Eosinophils Percent Auto 1.2 % (0-4.4); Hematocrit 45.5 % (42.0-52.0); Hemoglobin 14.7 g/dL (14.0-18.0); Immature Granulocyte Absolute 0.06 K/mm3 (0.00-0.031); Immature Granulocyte Percent A 0.3 % (0-0.5); Lymphocytes Absolute Auto 4.14 K/mm3 (0.9-3.2); Lymphocytes Percent Auto 23.9 % (18.3-44.2); Mean Corpuscular HGB Conc 32.3 g/dl (32-36); Mean Corpuscular Hemoglobin 29.5 pg (26-34); Mean Corpuscular Volume 91.2 fl (80-100); Mean Platelet Volume 10.6 fl (7.4-10.4); Monocytes Absolute Auto 1.7 K/mm3 (0.1-0.6); Monocytes Percent Auto 9.7 % (2.6-8.5); Neutrophils Absolute Auto 11.2 K/mm3 (1.3-6.7); Neutrophils Percent Auto 64.4 % (45.5-73.1); Platelet Count Result 369 k/mm3 (150-375); Red Blood Count 4.99 M/mm3 (4.6-6.20); Red Cell Distribution Width 13.2 % (11.5-14.5); White Blood Count 17.3 K/mm3 (4.5-10.0)
--- OUTSIDE RECORDS SUMMARY | 2025-04-02 21:48 | XMS_ITS | Clinical Summary ---
Author Organization [facility] Address [address] [place] [address] Care Team Providers Care Commercial Census Taker Name Role Phone Unavailable Primary Care Provider Unavailabl e Source Comments [facility],non-owned Affiliates and Associated Physician Practices is amultiple site organization consisting of ambulatory clinics and hospital sitesin [place], [place], [place] and [place]. This disclosure is being madepursuant to the Care Everywhere program and may not contain all information available regarding this patient. Last updated 18.[facility] [employer] Allergies No known active allergies Medications * [...] Recorded Patient Health Questionnaire-2 Score 4 11/14/2024 [facility] of Occupat ional Health - Occupational Stress [...] any time in the past 12 m [facility], were you homeless or living in a fci (including now)? Yes 02/10/2025 Sex and Gender Information Value Date Recorded Sex Assigned at Not on file Legal Sex Male 5:40 AM PR INTERN Gender Identity Not on file Sexual Orientation [...] Reactive Non Reactive 04/11/2022 6:55 PM CDT [facility] HBsAg Non Reactive Non Reactive 04/11/2022 6:55 PM CDT [facility] HBc Antibody IgM Non Reactive Non Reactive 04/11/2022 6:55 PM CDT [facility] HCV Antibody Screen Non Reactive Non Reactive 04/11/2022 6:55 PM CDT [facility] Blood BLOOD SPECIMEN / Unknown Lab Venipuncture / Unknown 04/11/2022 4:13 AM CDT 04/11/2022 4:22 AM CDT Narrative [facility] - 04/11/2022 6:55 PM CDT Non Reactive - Antibodies to Hepatitis C virus (HCV) were not detected, result does not exclude early acute HCV infection. us Sarai Bernardo MAIL ROOM-PHLEBOTOMY SERVICES REPRESENTATIVE LAB - CHEMISTRY ORDERABL ES Final Result [facility] [address] [place], [place] [id number] from Last 3 Months or Most Recently [...]
--- OUTSIDE RECORDS SUMMARY | 2025-04-02 21:48 | XMS_ITS ---
Author Organization [facility] Address [address] [place] [address] Care Team Providers Care Maintenance Custodian Name Role Phone Ankur Nair Unavailable [phone] Migration, Provider Unavailable Unavailable Allergies No Known Allergies REASON FOR VISIT [facility] Medications Medication SIG (Take, Route, Fr equency, Duration) Notes Start Date End Date Status Invega Sustenna 156 MG/ML Suspension Prefilled Syringe Inject 1 syringe intramuscularly once a month Intramuscular Active Social History Social History Additional Details Category Social Info Options Details Migrated Social History Migrated Social History alcohol use : no , chewing tobacco use : Former , 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 : No , In the past year, have you been afraid of a partner, ex-partner, or topographic computator because they made you feel emotionally or [...] What is your total monthly income : Refused Encounters Encounter Location Date Provider Diagnosis [address] [address] 11/25/2024 Provider Migration Plan Of Treatment No Information Progress Notes * INDRA ELLIOTT WDOB: 2 (34 yo M)Acc No.[id number]:11/25/2024 Patient: INDRA CARRERO W :1990 A ge:34 Y S ex:Male Address:[address] [place] [address] Subjective: * Chief Complaints: * E MR-Bull * Medical History: Bipolar d/o Depression LIZZETTE- meth, sober 1yr * Surgical History: None reported PAST SurgHX Till 09/17/2022 * Family History: M igrated Family History: : family history : Mom: mental disorderDad: mental disorderGrandparent: arthritis, asthma, heart condition, HTN, HLD, mental disorder . 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 : No , In the past year, have you been afraid of a partner, ex-partner, or topographic computator because they made you feel emotionally or [...] a month Intramuscular * Allergies: N .K.D.A. * * Date:
--- OUTSIDE RECORDS SUMMARY | 2025-04-02 21:48 | XMS_ITS | Continuity of Care Document ---
Author Organization [facility] Address [address] [place] [address] Phone Care Team Providers Care Compressed Gas Plant Worker Name Role Phone Yamila Damian LCSW Unavailable Unavailab le Advance Directives Directive Yes / No Effective Date File Name No Information Encounters Encounter Description Practice Location Reason(s) For Visit Diagnoses Date Provider Providers Copied on Encounter [facility], [address] [place] [address], [address], tel:[phone] [facility] Candido Driscoll. [address] [place] [address], [id number], [place]. tel:[phone] [facility], [address] [place] [address], [address], [place] tel:[phone] [facility] Cadnido Driscoll. [address] [place] [address], [id number], [place]. tel:[phone] As per patient privacy policy some of [...]
--- OUTSIDE RECORDS SUMMARY | 2025-04-02 21:48 | XMS_ITS ---
Author Organization [facility] Address [address] [place] [address] Care Team Providers Care Slipcover Cutter Name Role Phone Ankur Nair Unavailable [phone] Migration, Provider Unavailable Unavailable REASON FOR VISIT EMR-Bull Encounters Encounter Location Date Provider Diagnosis [address] [address] 11/24/2024 Provider Migration Plan Of Treatment Medication Medication Name Sig Start Date Stop Date Notes Invega Sustenna 117 MG/0.75ML Suspension Prefilled Syringe Inject 1 syringe intramuscularly once a month Intramuscular Progress Notes * INDRA ELLIOTT WDOB: 2 (34 yo M)Acc No.[id number]:11/24/2024 Patient: INDRA CARRERO :1990 A ge:34 Y S ex:Male Address:[address] [place] [address], [address] * Refills Stop Invega Sustenna Suspension Prefilled Syringe, 117 MG/0.75ML, Intramuscular, Inject 1 syringe intramuscularly once a month Subjective: * Chief Complaints: * E MR-Bull * * Date:
--- OUTSIDE RECORDS SUMMARY | 2025-04-02 21:48 | XMS_ITS | Patient Health Record ---
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
--- OUTSIDE RECORDS SUMMARY | 2025-04-02 21:48 | XMS_ITS | Continuity of Care Document ---
Author Organization [facility] Address [address] [facility] [place] [address] [place] [address] Phone Care Team Providers Care Income Tax Expert Name Role Phone Danial Hernandez MD Unavailable Unavailable Advance Directives Directive Yes / No Effective Date File Name No Information Encounters Encounter Description Practice Location Reason(s) For Visit Diagnoses Date Provider Providers Copied on Encounter [facility], [address] [place], [id number], [place] tel:[phone] [facility] No Information David Barrow. [address] [place], [place], [id number], [place]. tel:[phone] Family History Family Member Type Diagnosis Age [...]
--- OUTSIDE RECORDS SUMMARY | 2025-04-02 21:48 | XMS_ITS | Continuity of Care Document ---
Author Organization [facility] Address [address] [place] [address] [address] [place] [address] Phone Care Team Providers Care Restaurant Maintenance Technician Name Role Phone Shahnaz Hightower Unavailable Unavailable Advance Directives Directive Yes / No Effective Date File Name No Information Encounters Encounter Description Practice Location Reason(s) For Visit Diagnoses Date Provider Providers Copied on Encounter formerly [facility], [address] [place] [address] [address], [place], [place], [id number], [place] tel:[phone] [facility] [place] No Information Nov0 6-200 1 Katja Christie. [address] , [address], [place], [address], [place]. tel:[phone] Family History Family Member Type Diagnosis Age At Onset No Information Payers Payer name Insurance type Covered democrat ID Authoriza tion(s) [employer] [place] [id number] Social History Type Description Quantity Date Captured [...]
[2025-04-02 21:51] LABS: Ethanol < 10 mg/dL (<10)
[2025-04-02] MEDS: LORazepam INJ (*CRX) 2 MG/ML VIAL IM (21:52)
[2025-04-02 22:12] LABS: Alanine Aminotransferase 21 U/L (6-50); Alkaline Phosphatase 72 U/L (38-126); Anion Gap 7 mmol/L (4-12); Aspartate Amino Transferase 32 U/L (17-59); Bilirubin,Total 1.1 mg/dL (0.2-1.3); Blood Urea Nitrogen 16 mg/dL (9-20); Calcium 9.3 mg/dL (8.4-10.2); Carbon Dioxide 29 mmol/L (22-30); Chloride 102 mmol/L (98-107); Estimated CRCL calculation 88 ml/min; Estimated Glomerular Filt Rate > 60; Glucose 105 mg/dL (65-110); Potassium 3.9 mmol/L (3.4-5.0); Sodium 138 mmol/L (137-145)
--- NOTE | 2025-04-02 22:12 | PC.NURSE ---
pt made HI comments. pt stated I want to kill him. pt made comments about shooting people
[2025-04-02 22:16] LABS: Influenza A QL RT-PCR Negative (Negative); Influenza B QL RT-PCR Negative (Negative); RSV RNA, RT-PCR Negative (Negative); SARS-CoV-2 RNA PCR Negative (Negative)
[2025-04-02 22:20] LABS: Add Urine Microscopic? NO; Appearance Urine Clear (Clear); Bilirubin Urine Negative (Negative); Blood Urine Negative (Negative); Color Urine Yellow (Yellow); Glucose Urine UA Negative (Negative); Ketones Urine Trace mg/dL (Negative); Leukocyte Esterase Ur Negative LEU/UL (Negative); Nitrate Urine Negative (Negative); Protein Urine Negative (Negative); Specific Grav Ur 1.025 (1.001-1.035); pH Urine 6.5 (5.0-9.0)
[2025-04-02 22:35] LABS: Barbiturate Screen Urine Negative (Negative); Benzodiazepines Screen Urine Negative (Negative)
[2025-04-02 22:36] LABS: Cannabinoid Screen Urine Positive (Negative); Cocaine Screen Urine Negative (Negative); Methadone Screen Urine Negative (Negative); Opiate Screen Urine Negative (Negative); Phencyclidine Screen Urine Negative (Negative)
[2025-04-02] MEDS: HALOPERIDOL LACTATE 5 MG/ML VIAL IM (22:38)
[2025-04-02] MEDS: diphenhydrAMINE HCl INJ 50 MG/ML VIAL IM (22:38)
[2025-04-02 22:55] LABS: Amphetamine Screen Urine Positive (Negative)
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
--- NOTE | 2025-04-03 06:25 | PC.NURSE ---
pt accepted to [facility] with a dx of unspecified schizophrenia
[2025-04-03 09:29] VITALS: BP 118/68; PULSE 72; RESP 18; TEMP 36.7; O2SAT 100
--- NOTE | 2025-04-03 09:34 | PC.NURSE ---
pt woke up at this time. pt was given a water and a juice per request. pt was informed that he will be going to [facility] and waiting for his ride at this point. pt was cooperative with this RN, pt is A&OX4
--- NOTE | 2025-04-03 09:35 | PC.NURSE ---
pt denied SI and HI thoughts to this RN at this time
== END 2025-04-03 10:39 ==
PROVIDERS: Emergency Provider Emergency Medicine
DX: F15.959 Other stimulant use, unspecified with stimulant-induced psychotic disorder, unspecified (principal); R45.850 Homicidal ideations; Z11.52 Encounter for screening for COVID-19; F31.9 Bipolar disorder, unspecified; F17.210 Nicotine dependence, cigarettes, uncomplicated; Z86.14 Personal history of Methicillin resistant Staphylococcus aureus infection
CPT/HCPCS: 36415; 80053; 80307; 81003; 82077; 84443; 85025; 87637; 96372; 99285; J1200; J1630; J2060